=== PATIENT | male | born 1950 | race Caucasian/White ===

== ENCOUNTER 2017-08-25 19:37 | Emergency (ER) | payer OTHER, MEDICARE ==
[~2017-08-25] VITALS: Ht 165.1 cm; Wt 73.7 kg
[2017-08-25 19:45] VITALS: BP 132/72
[2017-08-25] MEDS ORDERED: predniSONE 20 mg tablet PO ONE (20:25)
[2017-08-25] MEDS ORDERED: levoFLOXACIN 250mg tablet PO ONE (20:25)
[2017-08-25] MEDS ORDERED: GUAI10SY2 PO (20:27)
[2017-08-25] MEDS ORDERED: TAM75C PO (20:27)
[2017-08-25] MEDS ORDERED: LEVO500T2 PO (20:27)
[2017-08-25] MEDS ORDERED: PRED20TA PO (20:27)
== END 2017-08-25 20:43 | disposition home or self-care (01) ==
LOC: ER 19:38
DX: J44.1 Chronic obstructive pulmonary disease with (acute) exacerbation (principal); M19.90 Unspecified osteoarthritis, unspecified site; Z79.899 Other long term (current) drug therapy
CPT/HCPCS: 71045; 99283; J7512

== ENCOUNTER 2017-09-17 07:23 | Inpatient (IN) | payer OTHER, MEDICARE ==
[~2017-09-17] VITALS: Ht 165.1 cm; Wt 92.0 kg
[~2017-09-17 07:23] MED LIST: GUAI10SY2 PO; LEVO500T2 PO; PRED20TA PO
[2017-09-17] MEDS ORDERED: albuterol 2.5 MG/3 ML nebule NEB ONE (07:30)
[2017-09-17] MEDS ORDERED: methylPREDNISolone sod succ 125mg/2ml vial IV ONE (07:30)
[2017-09-17] MEDS ORDERED: ipratropium/albuterol 3ml nebule NEB ONE (07:30)
[2017-09-17] MEDS ORDERED: rocuronium 10mg/ml inj IV ONE ×2 (08:00→10:00)
[2017-09-17 08:11] LABS: INR 1.1 INR; PARTIAL THROMBOPLASTIN TIME 29 SECONDS (22-32); PROTHROMBIN TIME 11.8 SECONDS (9.0-12.0)
[2017-09-17 08:24] LABS: ALANINE AMINOTRANSFERASE 28 U/L (12-78); ALBUMIN 3.6 G/DL (3.4-5.0); ALKALINE PHOSPHATASE 50 IU/L (46-116); ANION GAP 11 (8-16); ASPARTATE AMINO TRANSFERASE 19 U/L (10-37); BASOPHILS % (AUTO) 0.2 % (0-1); BILIRUBIN,TOTAL 0.4 MG/DL (0.1-1.0); BLOOD UREA NITROGEN 26 MG/DL (7-18); BUN/CREATININE RATIO 18.6 (5.4-32.0); CALCIUM 8.7 MG/DL (8.5-10.1); CHLORIDE 96 MMOL/L (99-107); EOSINOPHILS # (AUTO) 0.2 X10'3 (0-0.9); EOSINOPHILS % (AUTO) 2.3 % (0-6); GLUCOSE 110 MG/DL (70-104); HEMATOCRIT 38.6 % (42.0-52.0); HEMOGLOBIN 13.1 g/dl (14.0-17.9); LYMPHOCYTES # (AUTO) 0.9 X10'3 (1.1-4.8); LYMPHOCYTES % (AUTO) 11.4 % (21-51); MEAN CORPUSCULAR HEMOGLOBIN 32.8 PG (27.0-31.0); MEAN CORPUSCULAR HGB CONC 33.9 % (33.0-36.5); MEAN CORPUSCULAR VOLUME 96.6 FL (78-98); MEAN PLATELET VOLUME 7.9 FL (7.4-10.4); MONOCYTES # (AUTO) 1.1 X10'3 (0-0.9); MONOCYTES % (AUTO) 13.5 % (2-12); NEUTROPHILS # (AUTO) 5.7 X10'3 (1.8-7.7); NEUTROPHILS % (AUTO) 72.6 % (42-75); PLATELET COUNT 262 X10'3 (140-440); POTASSIUM 4.1 MMOL/L (3.5-5.1); RED CELL DISTRIBUTION WIDTH 15.3 % (11.5-14.5); SODIUM 131 MMOL/L (135-145); TOTAL CARBON DIOXIDE 24.3 MMOL/L (24-32); TOTAL PROTEIN 7.2 G/DL (6.4-8.2); WHITE BLOOD COUNT 7.9 X10'3 (4.5-11.0); eGFR 50 ML/MIN
[2017-09-17] MEDS ORDERED: SOTA150V (08:46)
[2017-09-17] MEDS ORDERED: ALBU8HFA PO (08:47)
[2017-09-17] MEDS ORDERED: TIOT18CA3 (08:48)
[2017-09-17] MEDS ORDERED: BUPR100T13 (08:49)
[2017-09-17] MEDS ORDERED: FERR325T28 PO (08:50)
[2017-09-17] MEDS ORDERED: OMEP40CA37 PO (08:53)
[2017-09-17] MEDS ORDERED: MONT10TA24 PO (08:54)
[2017-09-17] MEDS ORDERED: OSC500T PO (08:54)
[2017-09-17] MEDS ORDERED: APIX5TAB3 PO (08:55)
[2017-09-17] MEDS ORDERED: FISH12002 PO (08:55)
[2017-09-17] MEDS ORDERED: CETI10TA15 PO (08:56)
[2017-09-17] MEDS ORDERED: ATOR80TA PO (08:57)
[2017-09-17] MEDS ORDERED: CARSR60C PO (08:57)
[2017-09-17] MEDS ORDERED: LOSA25TA96 PO (08:58)
[2017-09-17] MEDS ORDERED: VIT500LI PO (08:58)
[2017-09-17] MEDS ORDERED: ALB0.5UD IH (08:59)
[2017-09-17] MEDS ORDERED: acetaminophen 325mg tablet PO PRN (09:25)
[2017-09-17] MEDS ORDERED: mag hydrox/Alum hydrox/simeth 30ml oral suspension PO PRN (09:25)
[2017-09-17] MEDS ORDERED: magnesium hydroxide 30ml (MOM) UD suspension PO PRN (09:25)
[2017-09-17] MEDS ORDERED: etomidate 2mg/ml inj. ONE (10:00)
[2017-09-17] MEDS ORDERED: SOTA120T PO (10:28)
[2017-09-17] MEDS: diltiazem CD 120mg capsule (once-daily) PO SCH (10:35)
[2017-09-17] MEDS: montelukast 10mg tablet PO SCH (10:36)
[2017-09-17] MEDS: aspirin 81mg tablet.DR PO SCH (10:36)
[2017-09-17] MEDS: buPROPion SR 150mg tablet PO SCH ×2 (10:36→20:33)
[2017-09-17] MEDS: cetirizine 10mg tablet PO SCH (10:36)
[2017-09-17] MEDS: normal saline 1000ml 1,000 ML IV SCH (10:43)
[2017-09-17] MEDS: ipratropium/albuterol 3ml nebule NEB SCH ×4 (13:17→23:56)
[2017-09-17] MEDS ORDERED: methylPREDNISolone sod succ 125mg/2ml vial IV SCH (14:00)
[2017-09-17] MEDS: losartan 50mg tablet PO SCH (14:20)
[2017-09-17 14:25] VITALS: BP 123/61
[2017-09-17] MEDS: methylPREDNISolone sod succ 125mg/2ml vial IV SCH ×2 (14:45→20:30)
[2017-09-17] MEDS: doxycycline hyclate 100mg tablet.DR PO SCH (17:19)
[2017-09-17 20:00] VITALS: BP 143/72
[2017-09-17] MEDS ORDERED: non-formulary drug (Fish Oil/Borage/Flax/Om3,6,9#1 (Omega 3-6-9 1,200 mg Softgel) 1 CAP) PO SCH (20:00)
[2017-09-17] MEDS: atorvastatin 20mg tablet PO SCH (20:33)
[2017-09-17] MEDS: sotalol 80mg tablet PO SCH (20:34)
[2017-09-17] MEDS: apixaban 5mg tablet PO SCH (20:34)
[2017-09-17] MEDS: ferrous sulfate 325mg tablet PO SCH (20:34)
[2017-09-17] MEDS: calcium carbonate 500mg tablet PO SCH (20:35)
[2017-09-17] MEDS ORDERED: temazepam 15mg capsule PO PRN (21:00)
[2017-09-18] VITALS: BP 127/80
[2017-09-18] MEDS: methylPREDNISolone sod succ 125mg/2ml vial IV SCH ×4 (02:11→19:28)
[2017-09-18] MEDS: HYDROcodone/acetaminophen 5mg/325mg tablet PO PRN ×2 (02:40→19:27)
[2017-09-18] MEDS: ipratropium/albuterol 3ml nebule NEB SCH ×6 (03:32→22:56)
[2017-09-18] MEDS: normal saline 1000ml 1,000 ML IV SCH (05:08)
[2017-09-18 05:22] LABS: BASOPHILS % (AUTO) 0 % (0-1); EOSINOPHILS % (AUTO) 0.5 % (0-6); HEMATOCRIT 33.4 % (42.0-52.0); HEMOGLOBIN 11.5 g/dl (14.0-17.9); LYMPHOCYTES # (AUTO) 0.4 X10'3 (1.1-4.8); LYMPHOCYTES % (AUTO) 4.4 % (21-51); MEAN CORPUSCULAR HEMOGLOBIN 32.7 PG (27.0-31.0); MEAN CORPUSCULAR HGB CONC 34.6 % (33.0-36.5); MEAN CORPUSCULAR VOLUME 94.6 FL (78-98); MONOCYTES # (AUTO) 1.2 X10'3 (0-0.9); MONOCYTES % (AUTO) 11.8 % (2-12); NEUTROPHILS # (AUTO) 8.5 X10'3 (1.8-7.7); NEUTROPHILS % (AUTO) 83.3 % (42-75); PLATELET COUNT 249 X10'3 (140-440); RED BLOOD COUNT 3.53 X10'6 (4.70-6.10); RED CELL DISTRIBUTION WIDTH 15.1 % (11.5-14.5); WHITE BLOOD COUNT 10.2 X10'3 (4.5-11.0)
[2017-09-18 05:50] LABS: ALBUMIN 3.1 G/DL (3.4-5.0); ANION GAP 10 (8-16); BLOOD UREA NITROGEN 32 MG/DL (7-18); BUN/CREATININE RATIO 24.6 (5.4-32.0); CALCIUM 8.7 MG/DL (8.5-10.1); CHLORIDE 95 MMOL/L (99-107); GLUCOSE 143 MG/DL (70-104); POTASSIUM 4.4 MMOL/L (3.5-5.1); SODIUM 129 MMOL/L (135-145); eGFR 55 ML/MIN
[2017-09-18 07:30] VITALS: BP 122/60
[2017-09-18] MEDS ORDERED: pantoprazole 40mg Tablet.DR PO SCH (07:30)
[2017-09-18] MEDS: doxycycline hyclate 100mg tablet.DR PO SCH ×2 (07:38→17:39)
[2017-09-18] MEDS: diltiazem CD 120mg capsule (once-daily) PO SCH (07:39)
[2017-09-18] MEDS: losartan 50mg tablet PO SCH (07:39)
[2017-09-18] MEDS: apixaban 5mg tablet PO SCH ×2 (07:39→19:27)
[2017-09-18] MEDS: aspirin 81mg tablet.DR PO SCH (07:39)
[2017-09-18] MEDS: ferrous sulfate 325mg tablet PO SCH ×2 (07:39→19:27)
[2017-09-18] MEDS: calcium carbonate 500mg tablet PO SCH ×2 (07:40→19:28)
[2017-09-18] MEDS: buPROPion SR 150mg tablet PO SCH ×2 (07:40→19:27)
[2017-09-18] MEDS: cetirizine 10mg tablet PO SCH (07:40)
[2017-09-18] MEDS: montelukast 10mg tablet PO SCH (07:40)
[2017-09-18] MEDS: ascorbic acid 500mg tablet PO SCH (07:40)
[2017-09-18] MEDS: sotalol 80mg tablet PO SCH ×2 (07:41→19:28)
[2017-09-18 11:00] VITALS: BP 103/49
[2017-09-18] MEDS: lactobacillus rhamnosus 10,000 MMU CELLS/CAPSULE PO SCH (19:28)
[2017-09-18 20:00] VITALS: BP 109/51
[2017-09-18] MEDS: atorvastatin 20mg tablet PO SCH (21:36)
[2017-09-18 23:30] VITALS: BP 128/74
[2017-09-18 23:51] LABS: ABG BASE EXCESS -1.6 mmol/L (-2.0-3.0); ABG HCO3 22.2 mmol/L (22.0-26.0); ABG OXYGEN SATURATION 87.7 % (95-98); ABG PCO2 (T) 34.5 mmHg (35.0-48.0); ABG PH (T) 7.426 (7.350-7.450); ABG PO2 (T) 52.8 mmHg (83-108); FCOHb 0.3 % (0.5-1.5); FLOW 2 L/min; FMetHb 0.1 % (0.3-1.12); FO2Hb 87.3 % (94-100); PATIENT TEMPERATURE 36.8; TOTAL HEMOGLOBIN 12.7 G/dl (14.0-18.0)
[2017-09-19] VITALS (25 sets, daily range): BP systolic 68–210; BP diastolic 45–98
[2017-09-19 00:51] LABS: ABG BASE EXCESS -2.2 mmol/L (-2.0-3.0); ABG HCO3 21.4 mmol/L (22.0-26.0); ABG OXYGEN SATURATION 97.9 % (95-98); ABG PCO2 (T) 32.9 mmHg (35.0-48.0); ABG PO2 (T) 108.4 mmHg (83-108); FCOHb 0.3 % (0.5-1.5); FMetHb 0.3 % (0.3-1.12); FO2Hb 97.3 % (94-100); PATIENT TEMPERATURE 36.8; RESPIRATORY RATE 14 b/min; RESPIRATORY RATE (OBSERVED) 41 b/min; TOTAL HEMOGLOBIN 12.5 G/dl (14.0-18.0)
[2017-09-19] MEDS ORDERED: midazolam 2 mg/2 ml injection IV ONE (01:20)
[2017-09-19] MEDS ORDERED: rocuronium 10mg/ml inj IV ONE (01:25)
[2017-09-19] MEDS ORDERED: etomidate 2mg/ml inj. IV ONE (01:25)
[2017-09-19] MEDS ORDERED: MIDAZolam 5mg/ml 2ml vial ONE (01:31)
[2017-09-19] MEDS: midazolam 100mg in NS 100ml 100 ML IV PRN ×2 (02:02→15:30)
[2017-09-19] MEDS: FENTANYL-0.9 % NACL/PF 100 ML IV PRN ×2 (02:04→13:03)
[2017-09-19 02:06] LABS: ABG BASE EXCESS -3.3 mmol/L (-2.0-3.0); ABG HCO3 23.4 mmol/L (22.0-26.0); ABG OXYGEN SATURATION 96.6 % (95-98); ABG PCO2 (T) 52.9 mmHg (35.0-48.0); ABG PH (T) 7.272 (7.350-7.450); ABG PO2 (T) 112.9 mmHg (83-108); ALLEN'S TEST Positive; FCOHb 0.1 % (0.5-1.5); FO2Hb 96.5 % (94-100); MINUTE VOLUME 8 L/min; PATIENT TEMPERATURE 38.9; PEEP 5 cm H2O; RESPIRATORY RATE 16 b/min; RESPIRATORY RATE (OBSERVED) 16 b/min; TIDAL VOLUME 500 mL; TOTAL HEMOGLOBIN 12.6 G/dl (14.0-18.0)
[2017-09-19] MEDS: vancomycin/NS 1 GM ADD-VANTAGE 250 ML IV ONE ×2 (02:20→03:58)
[2017-09-19] MEDS ORDERED: normal saline 500ml IV soln 500 ML IV ONE (02:25)
[2017-09-19] MEDS: acetaminophen 325mg tablet PO PRN ×3 (03:05→23:45)
[2017-09-19] MEDS ORDERED: vancomycin 250MG/10ML UD oral solution 10ML BOTTLE ONE (03:06)
[2017-09-19] MEDS ORDERED: PIPERACILLIN TAZO IV ONE (03:07)
[2017-09-19] MEDS ORDERED: vancomycin 750mg inj ONE (03:07)
[2017-09-19 03:08] LABS: BASOPHILS % (AUTO) 0 % (0-1); EOSINOPHILS % (AUTO) 0.2 % (0-6); HEMATOCRIT 35.1 % (42.0-52.0); LYMPHOCYTES # (AUTO) 0.3 X10'3 (1.1-4.8); LYMPHOCYTES % (AUTO) 4.7 % (21-51); MEAN CORPUSCULAR HEMOGLOBIN 32.9 PG (27.0-31.0); MEAN CORPUSCULAR HGB CONC 34.2 % (33.0-36.5); MEAN CORPUSCULAR VOLUME 96.2 FL (78-98); MEAN PLATELET VOLUME 8.1 FL (7.4-10.4); MONOCYTES # (AUTO) 0.8 X10'3 (0-0.9); MONOCYTES % (AUTO) 11.2 % (2-12); NEUTROPHILS % (AUTO) 83.9 % (42-75); PLATELET COUNT 245 X10'3 (140-440); RED BLOOD COUNT 3.65 X10'6 (4.70-6.10); RED CELL DISTRIBUTION WIDTH 14.9 % (11.5-14.5); WHITE BLOOD COUNT 7.2 X10'3 (4.5-11.0)
[2017-09-19] MEDS ORDERED: piperacillin-tazo 2.25gm/50ml 50 ML IV ONE (03:08)
[2017-09-19 03:09] LABS: CLARITY,URINE CLEAR (Clear); COLOR,URINE YELLOW (Yellow); GLUCOSE, URINE NEGATIVE (Neg); KETONES,URINE NEGATIVE (Neg); LEUKOCYTE ESTERASE ,URINE NEGATIVE (Neg); NITRITES, URINE NEGATIVE (Neg); OCCULT BLOOD,URINE SMALL (Neg); PROTEIN,URINE 100 mg/dl (Neg); UROBILINOGEN,URINE 0.2 E.U/dL (0.2-1.0)
[2017-09-19] MEDS ORDERED: vancomycin 125mg/5ml ORAL solution 5ml UD bottle ONE (03:10)
[2017-09-19 03:16] LABS: UA COLLECTION TYPE FOLEY CATH
[2017-09-19 03:18] LABS: BACTERIA,URINE FEW /HPF (Neg); RBC,URINE 0-2 /HPF (0-2); SQUAMOUS EPITHELIAL CELL,UR FEW /LPF (FEW); WBC,URINE NONE SEEN /HPF (0-4)
[2017-09-19] MEDS: piperacillin-tazo 2.25gm/50ml 50 ML IV SCH ×2 (03:21→08:17)
[2017-09-19] MEDS: ipratropium/albuterol 3ml nebule NEB SCH ×6 (03:22→22:46)
[2017-09-19] MEDS: methylPREDNISolone sod succ 125mg/2ml vial IV SCH ×4 (03:29→20:24)
[2017-09-19 03:30] LABS: ALANINE AMINOTRANSFERASE 25 U/L (12-78); ALBUMIN 3.1 G/DL (3.4-5.0); ALBUMIN/GLOBULIN RATIO 0.8 (1.1-1.5); ALKALINE PHOSPHATASE 36 IU/L (46-116); ANION GAP 10 (8-16); ASPARTATE AMINO TRANSFERASE 32 U/L (10-37); BILIRUBIN,TOTAL 0.7 MG/DL (0.1-1.0); BLOOD UREA NITROGEN 42 MG/DL (7-18); CALCIUM 8.4 MG/DL (8.5-10.1); CHLORIDE 95 MMOL/L (99-107); GLUCOSE 146 MG/DL (70-104); MAGNESIUM 1.7 MG/DL (1.5-2.4); POTASSIUM 4.1 MMOL/L (3.5-5.1); SODIUM 130 MMOL/L (135-145); TOTAL PROTEIN 6.8 G/DL (6.4-8.2); eGFR 50 ML/MIN
[2017-09-19] MEDS ORDERED: vancomycin/NS 1 GM ADD-VANTAGE 250 ML IV ONE (04:20)
[2017-09-19 06:26] LABS: ALLEN'S TEST Positive
[2017-09-19] MEDS: losartan 50mg tablet PO SCH (08:00)
[2017-09-19] MEDS: calcium carbonate 500mg tablet PO SCH ×2 (08:00→20:26)
[2017-09-19] MEDS: diltiazem CD 120mg capsule (once-daily) PO SCH (08:00)
[2017-09-19] MEDS: buPROPion SR 150mg tablet PO SCH ×2 (08:13→20:27)
[2017-09-19] MEDS: lactobacillus rhamnosus 10,000 MMU CELLS/CAPSULE PO SCH ×2 (08:13→20:27)
[2017-09-19] MEDS: apixaban 5mg tablet PO SCH ×2 (08:13→20:28)
[2017-09-19] MEDS: sotalol 80mg tablet PO SCH ×2 (08:13→20:28)
[2017-09-19] MEDS: aspirin 81mg tablet.DR PO SCH (08:13)
[2017-09-19] MEDS: ascorbic acid 500mg tablet PO SCH (08:14)
[2017-09-19] MEDS: ferrous sulfate 325mg tablet PO SCH ×2 (08:15→20:29)
[2017-09-19] MEDS: cefTRIAXone 1g/NS 100ml IVPB 100 ML IV SCH ×2 (09:25→13:37)
[2017-09-19 10:20] LABS: ABG BASE EXCESS -2.1 mmol/L (-2.0-3.0); ABG HCO3 23.8 mmol/L (22.0-26.0); ABG OXYGEN SATURATION 97.8 % (95-98); ABG PCO2 (T) 46.4 mmHg (35.0-48.0); ABG PH (T) 7.331 (7.350-7.450); ABG PO2 (T) 129.6 mmHg (83-108); FCOHb 0.2 % (0.5-1.5); FMetHb 0.2 % (0.3-1.12); FO2Hb 97.4 % (94-100); MINUTE VOLUME 10 L/min; PATIENT TEMPERATURE 37.7; PEEP 5 cm H2O; RESPIRATORY RATE (OBSERVED) 16 b/min; TIDAL VOLUME 639 mL
[2017-09-19] MEDS: azithromycin/NS 500mg/250ml 250 ML IV SCH (11:11)
[2017-09-19] MEDS ORDERED: CefTRIAXone 1 gm/50ml D5W ADV 50 ML IV SCH (12:19)
[2017-09-19] MEDS: normal saline 1000ml 1,000 ML IV SCH ×2 (12:58→23:10)
[2017-09-19] MEDS ORDERED: CefTRIAXone 1 gm/50ml D5W ADV 50 ML IV ONE (13:00)
[2017-09-19] MEDS ORDERED: amiodarone 150mg/dext, iso-os 100 ML IV ONE (14:35)
[2017-09-19] MEDS: amiodarone/D5 360MG/200ML BAG 200 ML IV SCH ×2 (14:58→20:31)
[2017-09-19] MEDS ORDERED: normal saline 1000ml 1,000 ML IVB ONE (17:10)
[2017-09-19] MEDS ORDERED: NORepinephrine 8mg/ 250ml NS 250 ML IV ONE (17:21)
[2017-09-19] MEDS ORDERED: NORepinephrine 8mg/ 250ml NS 250 ML IV SCH (17:25)
[2017-09-19] MEDS: atorvastatin 20mg tablet PO SCH (20:28)
[2017-09-19 23:50] LABS: PO2 MIXED VENOUS (TEMP COR) 44.2 mmHg (35-46)
[2017-09-20] VITALS (24 sets, daily range): BP systolic 84–121; BP diastolic 46–76
[2017-09-20] MEDS: methylPREDNISolone sod succ 125mg/2ml vial IV SCH ×4 (02:50→20:58)
[2017-09-20 03:17] LABS: BASOPHILS % (AUTO) 0.1 % (0-1); EOSINOPHILS % (AUTO) 0.2 % (0-6); HEMATOCRIT 30.1 % (42.0-52.0); HEMOGLOBIN 10.4 g/dl (14.0-17.9); LYMPHOCYTES # (AUTO) 0.5 X10'3 (1.1-4.8); LYMPHOCYTES % (AUTO) 6.5 % (21-51); MEAN CORPUSCULAR HGB CONC 34.7 % (33.0-36.5); MEAN CORPUSCULAR VOLUME 95.3 FL (78-98); MEAN PLATELET VOLUME 8.5 FL (7.4-10.4); MONOCYTES # (AUTO) 0.7 X10'3 (0-0.9); MONOCYTES % (AUTO) 9.9 % (2-12); NEUTROPHILS % (AUTO) 83.3 % (42-75); PLATELET COUNT 189 X10'3 (140-440); RED BLOOD COUNT 3.16 X10'6 (4.70-6.10); RED CELL DISTRIBUTION WIDTH 14.1 % (11.5-14.5); WHITE BLOOD COUNT 7.2 X10'3 (4.5-11.0)
[2017-09-20] MEDS: FENTANYL-0.9 % NACL/PF 100 ML IV PRN ×2 (03:28→21:00)
[2017-09-20] MEDS: ipratropium/albuterol 3ml nebule NEB SCH ×6 (03:28→23:10)
[2017-09-20 03:39] LABS: ALANINE AMINOTRANSFERASE 17 U/L (12-78); ALBUMIN 2.2 G/DL (3.4-5.0); ALBUMIN/GLOBULIN RATIO 0.6 (1.1-1.5); ALKALINE PHOSPHATASE 21 IU/L (46-116); ANION GAP 11 (8-16); ASPARTATE AMINO TRANSFERASE 31 U/L (10-37); BILIRUBIN,TOTAL 0.4 MG/DL (0.1-1.0); BLOOD UREA NITROGEN 65 MG/DL (7-18); BUN/CREATININE RATIO 32.2 (5.4-32.0); CALCIUM 7.9 MG/DL (8.5-10.1); CHLORIDE 100 MMOL/L (99-107); CREATININE 2.02 MG/DL (0.60-1.10); GLUCOSE 114 MG/DL (70-104); POTASSIUM 4.4 MMOL/L (3.5-5.1); SODIUM 135 MMOL/L (135-145); TOTAL CARBON DIOXIDE 23.6 MMOL/L (24-32); TOTAL PROTEIN 5.8 G/DL (6.4-8.2); eGFR 33 ML/MIN
[2017-09-20 03:45] LABS: ABG HCO3 20.2 mmol/L (22.0-26.0); ABG OXYGEN SATURATION 93.6 % (95-98); ABG PCO2 (T) 43.8 mmHg (35.0-48.0); ABG PH (T) 7.285 (7.350-7.450); ALLEN'S TEST Positive; FCOHb 0.1 % (0.5-1.5); FMetHb 0.3 % (0.3-1.12); FO2Hb 93.2 % (94-100); MINUTE VOLUME 10 L/min; PATIENT TEMPERATURE 37.8; PEEP 5 cm H2O; RESPIRATORY RATE (OBSERVED) 12 b/min; TIDAL VOLUME 835 mL; TOTAL HEMOGLOBIN 11.1 G/dl (14.0-18.0)
[2017-09-20] MEDS: azithromycin/NS 500mg/250ml 250 ML IV SCH (07:33)
[2017-09-20] MEDS: sotalol 80mg tablet PO SCH ×2 (07:34→21:10)
[2017-09-20] MEDS: ferrous sulfate 325mg tablet PO SCH ×2 (07:35→20:58)
[2017-09-20] MEDS: ascorbic acid 500mg tablet PO SCH (07:35)
[2017-09-20] MEDS: calcium carbonate 500mg tablet PO SCH ×2 (07:35→21:09)
[2017-09-20] MEDS: apixaban 5mg tablet PO SCH ×2 (07:35→21:09)
[2017-09-20] MEDS: aspirin 81mg tablet.DR PO SCH (07:35)
[2017-09-20] MEDS: buPROPion SR 150mg tablet PO SCH ×2 (07:35→21:08)
[2017-09-20] MEDS: lactobacillus rhamnosus 10,000 MMU CELLS/CAPSULE PO SCH ×2 (07:35→20:58)
[2017-09-20] MEDS: losartan 50mg tablet PO SCH (07:35)
[2017-09-20] MEDS: diltiazem CD 120mg capsule (once-daily) PO SCH (07:54)
[2017-09-20] MEDS: amiodarone/D5 360MG/200ML BAG 200 ML IV SCH ×2 (08:43→21:00)
[2017-09-20 10:10] LABS: CLARITY,URINE CLOUDY (Clear); COLOR,URINE YELLOW (Yellow); GLUCOSE, URINE NEGATIVE (Neg); KETONES,URINE NEGATIVE (Neg); LEUKOCYTE ESTERASE ,URINE NEGATIVE (Neg); NITRITES, URINE NEGATIVE (Neg); OCCULT BLOOD,URINE LARGE (Neg); PH,URINE 5.5 (4.8-8.0); PROTEIN,URINE 100 mg/dl (Neg); UROBILINOGEN,URINE 0.2 E.U/dL (0.2-1.0)
[2017-09-20 10:23] LABS: UA COLLECTION TYPE NON-SPECIFIED
[2017-09-20 10:24] LABS: COARSE GRANULAR CAST >30 /LPF (NEGATIVE)
[2017-09-20 10:25] LABS: RBC,URINE TNTC /HPF (0-2)
[2017-09-20 10:30] LABS: BACTERIA,URINE 1+ /HPF (Neg); MUCUS STRANDS FEW /LPF (Neg); SQUAMOUS EPITHELIAL CELL,UR FEW /LPF (FEW)
[2017-09-20 10:46] LABS: SODIUM,URINE RANDOM < 15 MEQ/L
[2017-09-20] MEDS ORDERED: piperacillin/tazobactam inj. 2.25 GM in normal saline 50ml IV IV SCH (10:52)
[2017-09-20] MEDS: normal saline 1000ml 1,000 ML IV SCH ×3 (11:07→22:46)
[2017-09-20] MEDS: piperacillin-tazo 2.25gm/50ml 50 ML IV SCH ×3 (11:08→20:58)
[2017-09-20 11:47] LABS: UA EOSINOPHILS NO EOS /HPF
[2017-09-20] MEDS: midazolam 100mg in NS 100ml 100 ML IV PRN (17:15)
[2017-09-20] MEDS: NORepinephrine 8mg/ 250ml NS 250 ML IV PRN (17:18)
[2017-09-20] MEDS: atorvastatin 20mg tablet PO SCH (21:09)
[2017-09-21] VITALS (24 sets, daily range): BP systolic 85–149; BP diastolic 54–69
[2017-09-21] MEDS: piperacillin-tazo 2.25gm/50ml 50 ML IV SCH ×2 (02:35→08:14)
[2017-09-21] MEDS: methylPREDNISolone sod succ 125mg/2ml vial IV SCH ×4 (02:35→20:13)
[2017-09-21] MEDS: ipratropium/albuterol 3ml nebule NEB SCH ×6 (02:55→23:28)
[2017-09-21] MEDS: midazolam 100mg in NS 100ml 100 ML IV PRN ×2 (04:19→23:56)
[2017-09-21 04:24] LABS: BASOPHILS % (AUTO) 0 % (0-1); EOSINOPHILS % (AUTO) 0.3 % (0-6); HEMATOCRIT 32.7 % (42.0-52.0); HEMOGLOBIN 11.1 g/dl (14.0-17.9); LYMPHOCYTES # (AUTO) 0.5 X10'3 (1.1-4.8); LYMPHOCYTES % (AUTO) 4.1 % (21-51); MEAN CORPUSCULAR HGB CONC 33.8 % (33.0-36.5); MEAN CORPUSCULAR VOLUME 97.7 FL (78-98); MEAN PLATELET VOLUME 9.2 FL (7.4-10.4); MONOCYTES # (AUTO) 0.5 X10'3 (0-0.9); MONOCYTES % (AUTO) 4.3 % (2-12); NEUTROPHILS # (AUTO) 11.3 X10'3 (1.8-7.7); NEUTROPHILS % (AUTO) 91.3 % (42-75); PLATELET COUNT 210 X10'3 (140-440); RED BLOOD COUNT 3.35 X10'6 (4.70-6.10); RED CELL DISTRIBUTION WIDTH 15.5 % (11.5-14.5); WHITE BLOOD COUNT 12.4 X10'3 (4.5-11.0)
[2017-09-21] MEDS: normal saline 1000ml 1,000 ML IV SCH ×3 (04:38→20:12)
[2017-09-21 04:42] LABS: ALANINE AMINOTRANSFERASE 23 U/L (12-78); ALBUMIN 1.8 G/DL (3.4-5.0); ALBUMIN/GLOBULIN RATIO 0.5 (1.1-1.5); ALKALINE PHOSPHATASE 26 IU/L (46-116); ANION GAP 11 (8-16); ASPARTATE AMINO TRANSFERASE 33 U/L (10-37); BILIRUBIN,TOTAL 0.4 MG/DL (0.1-1.0); BLOOD UREA NITROGEN 78 MG/DL (7-18); BUN/CREATININE RATIO 30.2 (5.4-32.0); CALCIUM 7.9 MG/DL (8.5-10.1); CHLORIDE 103 MMOL/L (99-107); CREATININE 2.58 MG/DL (0.60-1.10); GLUCOSE 128 MG/DL (70-104); POTASSIUM 4.6 MMOL/L (3.5-5.1); PREALBUMIN 9.5 MG/DL (19-36); SODIUM 137 MMOL/L (135-145); TOTAL PROTEIN 5.7 G/DL (6.4-8.2); eGFR 25 ML/MIN
[2017-09-21 05:11] LABS: ABG BASE EXCESS -7.4 mmol/L (-2.0-3.0); ABG HCO3 20.3 mmol/L (22.0-26.0); ABG OXYGEN SATURATION 94.1 % (95-98); ABG PCO2 (T) 51.7 mmHg (35.0-48.0); ABG PH (T) 7.214 (7.350-7.450); ABG PO2 (T) 80.5 mmHg (83-108); ALLEN'S TEST Positive; FCOHb 0.3 % (0.5-1.5); FMetHb 0.3 % (0.3-1.12); FO2Hb 93.5 % (94-100); PATIENT TEMPERATURE 37.5; PEEP 5 cm H2O; RESPIRATORY RATE 20 b/min; RESPIRATORY RATE (OBSERVED) 20 b/min; TOTAL HEMOGLOBIN 11.8 G/dl (14.0-18.0)
[2017-09-21] MEDS: losartan 50mg tablet PO SCH (08:00)
[2017-09-21] MEDS: lactobacillus rhamnosus 10,000 MMU CELLS/CAPSULE PO SCH ×2 (08:14→20:13)
[2017-09-21] MEDS: aspirin 81mg tablet.DR PO SCH (08:14)
[2017-09-21] MEDS: ascorbic acid 500mg tablet PO SCH (08:14)
[2017-09-21] MEDS: ferrous sulfate 325mg tablet PO SCH ×2 (08:14→20:13)
[2017-09-21] MEDS: sotalol 80mg tablet PO SCH ×2 (08:14→20:13)
[2017-09-21] MEDS: buPROPion SR 150mg tablet PO SCH ×2 (08:14→20:00)
[2017-09-21] MEDS: apixaban 5mg tablet PO SCH ×2 (08:14→20:13)
[2017-09-21] MEDS: calcium carbonate 500mg tablet PO SCH ×2 (08:14→20:13)
[2017-09-21] MEDS: NORepinephrine 8mg/ 250ml NS 250 ML IV PRN (09:53)
[2017-09-21] MEDS: amiodarone/D5 360MG/200ML BAG 200 ML IV SCH ×2 (09:54→20:39)
[2017-09-21 11:01] LABS: ABG BASE EXCESS -9.7 mmol/L (-2.0-3.0); ABG HCO3 17.9 mmol/L (22.0-26.0); ABG PCO2 (T) 47.3 mmHg (35.0-48.0); ABG PO2 (T) 107.7 mmHg (83-108); FCOHb 0.3 % (0.5-1.5); FLOW 40 L/min; FMetHb 0.3 % (0.3-1.12); FO2Hb 96.4 % (94-100); MINUTE VOLUME 9 L/min; PATIENT TEMPERATURE 37.7; PEEP 5 cm H2O; RESPIRATORY RATE 22 b/min; RESPIRATORY RATE (OBSERVED) 22 b/min; TOTAL HEMOGLOBIN 11.6 G/dl (14.0-18.0)
[2017-09-21] MEDS: famotidine/PF 10 mg/ml inj IV SCH ×2 (12:34→20:12)
[2017-09-21] MEDS: bisacodyl 10mg suppository rectal RC PRN (15:17)
[2017-09-21 16:56] LABS: ABG BASE EXCESS -10.1 mmol/L (-2.0-3.0); ABG HCO3 16.2 mmol/L (22.0-26.0); ABG OXYGEN SATURATION 95.7 % (95-98); ABG PCO2 (T) 38.1 mmHg (35.0-48.0); ABG PH (T) 7.249 (7.350-7.450); ABG PO2 (T) 89.8 mmHg (83-108); ALLEN'S TEST Positive; FCOHb 0.3 % (0.5-1.5); FO2Hb 95.4 % (94-100); MINUTE VOLUME 13 L/min; PATIENT TEMPERATURE 37.6; PEEP 5 cm H2O; RESPIRATORY RATE 24 b/min; RESPIRATORY RATE (OBSERVED) 24 b/min; TIDAL VOLUME 540 mL; TOTAL HEMOGLOBIN 11.7 G/dl (14.0-18.0)
[2017-09-21] MEDS: atorvastatin 20mg tablet PO SCH (20:14)
[2017-09-21] MEDS ORDERED: dextrose ORAL solution 15 GM/59 ML bottle PO PRN ×2 (20:50)
[2017-09-21] MEDS ORDERED: MESSAGE TO PHARMACY PO ONE (20:50)
[2017-09-21] MEDS ORDERED: glucagon, human recombinant 1mg kit SUBCUT PRN (20:50)
[2017-09-21] MEDS ORDERED: dextrose 50%-water 50ml dispensing syringe IV PRN ×2 (20:50)
[2017-09-21] MEDS: insulin glargine (Lantus) pen - multi-dose SQ SCH (21:00)
[2017-09-21] MEDS: FENTANYL-0.9 % NACL/PF 100 ML IV PRN (21:21)
[2017-09-22] VITALS (23 sets, daily range): BP systolic 85–144; BP diastolic 52–73
[2017-09-22] MEDS: normal saline 1000ml 1,000 ML IV SCH ×4 (02:19→21:26)
[2017-09-22] MEDS: methylPREDNISolone sod succ 125mg/2ml vial IV SCH ×4 (02:20→20:22)
[2017-09-22 02:36] LABS: BASOPHILS % (AUTO) 0 % (0-1); EOSINOPHILS % (AUTO) 0 % (0-6); HEMATOCRIT 31.9 % (42.0-52.0); HEMOGLOBIN 10.9 g/dl (14.0-17.9); LYMPHOCYTES # (AUTO) 0.8 X10'3 (1.1-4.8); LYMPHOCYTES % (AUTO) 4.5 % (21-51); MEAN CORPUSCULAR HEMOGLOBIN 32.9 PG (27.0-31.0); MEAN CORPUSCULAR HGB CONC 34.1 % (33.0-36.5); MEAN CORPUSCULAR VOLUME 96.4 FL (78-98); MEAN PLATELET VOLUME 8.9 FL (7.4-10.4); MONOCYTES # (AUTO) 0.8 X10'3 (0-0.9); MONOCYTES % (AUTO) 4.5 % (2-12); NEUTROPHILS # (AUTO) 16.1 X10'3 (1.8-7.7); PLATELET COUNT 210 X10'3 (140-440); RED BLOOD COUNT 3.31 X10'6 (4.70-6.10); RED CELL DISTRIBUTION WIDTH 16.2 % (11.5-14.5); WHITE BLOOD COUNT 17.7 X10'3 (4.5-11.0)
[2017-09-22 02:53] LABS: ALANINE AMINOTRANSFERASE 32 U/L (12-78); ALBUMIN 1.5 G/DL (3.4-5.0); ALBUMIN/GLOBULIN RATIO 0.4 (1.1-1.5); ALKALINE PHOSPHATASE 41 IU/L (46-116); ANION GAP 11 (8-16); ASPARTATE AMINO TRANSFERASE 37 U/L (10-37); BILIRUBIN,TOTAL 0.2 MG/DL (0.1-1.0); BLOOD UREA NITROGEN 106 MG/DL (7-18); BUN/CREATININE RATIO 32.2 (5.4-32.0); CALCIUM 8.1 MG/DL (8.5-10.1); CHLORIDE 103 MMOL/L (99-107); CREATININE 3.29 MG/DL (0.60-1.10); GLUCOSE 170 MG/DL (70-104); MAGNESIUM 2.5 MG/DL (1.5-2.4); PHOSPHORUS 3.6 MG/DL (2.3-4.5); POTASSIUM 4.2 MMOL/L (3.5-5.1); SODIUM 135 MMOL/L (135-145); TOTAL CARBON DIOXIDE 21.2 MMOL/L (24-32); TOTAL PROTEIN 5.4 G/DL (6.4-8.2); eGFR 19 ML/MIN
[2017-09-22] MEDS: ipratropium/albuterol 3ml nebule NEB SCH ×6 (03:22→23:27)
[2017-09-22 03:31] LABS: ANISOCYTOSIS 1+; BURR CELLS 1+; NUCLEATED RED BLOOD CELLS 1 /100WBC (0-0); PLATELET ESTIMATE NORMAL; TOTAL CELLS COUNTED 100
[2017-09-22 04:41] LABS: ABG BASE EXCESS -10.3 mmol/L (-2.0-3.0); ABG HCO3 16.6 mmol/L (22.0-26.0); ABG OXYGEN SATURATION 94.2 % (95-98); ABG PCO2 (T) 38.2 mmHg (35.0-48.0); ABG PO2 (T) 74.6 mmHg (83-108); ALLEN'S TEST Positive; FCOHb 0.3 % (0.5-1.5); FMetHb 0.3 % (0.3-1.12); FO2Hb 93.6 % (94-100); MINUTE VOLUME 14 L/min; PEEP 5 cm H2O; RESPIRATORY RATE 24 b/min; RESPIRATORY RATE (OBSERVED) 27 b/min; TOTAL HEMOGLOBIN 12.5 G/dl (14.0-18.0)
[2017-09-22] MEDS: NORepinephrine 8mg/ 250ml NS 250 ML IV PRN ×2 (05:40→21:40)
[2017-09-22] MEDS: levoFLOXACIN-Levaquin 250mg/D5 50 ML IV SCH (08:50)
[2017-09-22] MEDS: sotalol 80mg tablet PO SCH ×2 (08:51→20:27)
[2017-09-22] MEDS: famotidine/PF 10 mg/ml inj IV SCH ×2 (08:51→20:22)
[2017-09-22] MEDS: calcium carbonate 500mg tablet PO SCH ×2 (08:52→20:28)
[2017-09-22] MEDS: lactobacillus rhamnosus 10,000 MMU CELLS/CAPSULE PO SCH ×2 (08:52→20:27)
[2017-09-22] MEDS: ascorbic acid 500mg tablet PO SCH (08:52)
[2017-09-22] MEDS: apixaban 5mg tablet PO SCH ×2 (08:52→20:27)
[2017-09-22] MEDS: insulin regular, human vial - multi-dose SQ SCH ×3 (09:02→20:58)
[2017-09-22] MEDS: losartan 50mg tablet PO SCH (09:02)
[2017-09-22] MEDS: amiodarone/D5 360MG/200ML BAG 200 ML IV SCH ×2 (10:16→20:24)
[2017-09-22] MEDS: FENTANYL-0.9 % NACL/PF 100 ML IV PRN (18:30)
[2017-09-22] MEDS ORDERED: albumin (human) 25% 100 ML IV solution IV ONE (19:45)
[2017-09-22] MEDS ORDERED: furosemide 40mg/4ml inj IV ONE (19:45)
[2017-09-22] MEDS: ferrous sulfate 300mg/5ml UD oral liquid PO SCH (20:28)
[2017-09-22] MEDS: atorvastatin 20mg tablet PO SCH (20:28)
[2017-09-22] MEDS: buPROPion 75mg tablet PO SCH (20:28)
[2017-09-22] MEDS: insulin glargine (Lantus) pen - multi-dose SQ SCH (20:56)
[2017-09-22] MEDS: midazolam 100mg in NS 100ml 100 ML IV PRN (21:41)
[2017-09-23] VITALS (23 sets, daily range): BP systolic 66–119; BP diastolic 46–74
[2017-09-23] MEDS: normal saline 1000ml 1,000 ML IV SCH ×3 (00:11→15:26)
[2017-09-23] MEDS: methylPREDNISolone sod succ 125mg/2ml vial IV SCH ×4 (02:17→21:08)
[2017-09-23] MEDS: insulin regular, human vial - multi-dose SQ SCH ×3 (02:27→14:23)
[2017-09-23] MEDS: ipratropium/albuterol 3ml nebule NEB SCH ×6 (03:27→23:33)
[2017-09-23 03:41] LABS: ABG BASE EXCESS -12.1 mmol/L (-2.0-3.0); ABG HCO3 14.7 mmol/L (22.0-26.0); ABG OXYGEN SATURATION 94.2 % (95-98); ABG PCO2 (T) 35.2 mmHg (35.0-48.0); ABG PH (T) 7.233 (7.350-7.450); ABG PO2 (T) 73.8 mmHg (83-108); ALLEN'S TEST Positive; FCOHb 0.3 % (0.5-1.5); FMetHb 0.3 % (0.3-1.12); FO2Hb 93.6 % (94-100); MINUTE VOLUME 12 L/min; PATIENT TEMPERATURE 36.2; PEEP 5 cm H2O; RESPIRATORY RATE 24 b/min; RESPIRATORY RATE (OBSERVED) 24 b/min; TOTAL HEMOGLOBIN 10.7 G/dl (14.0-18.0)
[2017-09-23 04:46] LABS: BASOPHILS % (AUTO) 0 % (0-1); EOSINOPHILS # (AUTO) 0.3 X10'3 (0-0.9); EOSINOPHILS % (AUTO) 1.2 % (0-6); HEMATOCRIT 28.9 % (42.0-52.0); HEMOGLOBIN 9.8 g/dl (14.0-17.9); LYMPHOCYTES # (AUTO) 0.4 X10'3 (1.1-4.8); MEAN CORPUSCULAR HEMOGLOBIN 32.2 PG (27.0-31.0); MEAN CORPUSCULAR HGB CONC 33.7 % (33.0-36.5); MEAN CORPUSCULAR VOLUME 95.6 FL (78-98); MEAN PLATELET VOLUME 9.4 FL (7.4-10.4); MONOCYTES # (AUTO) 0.5 X10'3 (0-0.9); MONOCYTES % (AUTO) 2.3 % (2-12); NEUTROPHILS # (AUTO) 20.4 X10'3 (1.8-7.7); NEUTROPHILS % (AUTO) 94.5 % (42-75); PLATELET COUNT 188 X10'3 (140-440); RED BLOOD COUNT 3.03 X10'6 (4.70-6.10); RED CELL DISTRIBUTION WIDTH 17.2 % (11.5-14.5); WHITE BLOOD COUNT 21.6 X10'3 (4.5-11.0)
[2017-09-23 05:23] LABS: ALANINE AMINOTRANSFERASE 40 U/L (12-78); ALBUMIN 2.1 G/DL (3.4-5.0); ALBUMIN/GLOBULIN RATIO 0.6 (1.1-1.5); ALKALINE PHOSPHATASE 46 IU/L (46-116); ANION GAP 16 (8-16); ASPARTATE AMINO TRANSFERASE 34 U/L (10-37); BILIRUBIN,TOTAL 0.3 MG/DL (0.1-1.0); BLOOD UREA NITROGEN 125 MG/DL (7-18); BUN/CREATININE RATIO 32.1 (5.4-32.0); CALCIUM 8.1 MG/DL (8.5-10.1); CHLORIDE 105 MMOL/L (99-107); GLUCOSE 181 MG/DL (70-104); MAGNESIUM 2.6 MG/DL (1.5-2.4); POTASSIUM 4.2 MMOL/L (3.5-5.1); SODIUM 137 MMOL/L (135-145); TOTAL CARBON DIOXIDE 16.5 MMOL/L (24-32); TOTAL PROTEIN 5.4 G/DL (6.4-8.2); eGFR 15 ML/MIN
[2017-09-23 07:04] LABS: ANISOCYTOSIS 1+; BURR CELLS 1+; NUCLEATED RED BLOOD CELLS 2 /100WBC (0-0); PLATELET ESTIMATE NORMAL; POIKILOCYTOSIS FEW; TARGET CELLS FEW; TEAR DROP CELLS FEW; TOTAL CELLS COUNTED 100
[2017-09-23] MEDS: losartan 50mg tablet PO SCH ×2 (08:00→08:24)
[2017-09-23] MEDS: sotalol 80mg tablet PO SCH ×3 (08:00→20:00)
[2017-09-23] MEDS: amiodarone/D5 360MG/200ML BAG 200 ML IV SCH (08:14)
[2017-09-23] MEDS: lactobacillus rhamnosus 10,000 MMU CELLS/CAPSULE PO SCH ×2 (08:24→21:08)
[2017-09-23] MEDS: apixaban 5mg tablet PO SCH ×2 (08:25→21:21)
[2017-09-23] MEDS: buPROPion 75mg tablet PO SCH ×2 (08:25→21:18)
[2017-09-23] MEDS: ascorbic acid 500mg tablet PO SCH (08:25)
[2017-09-23] MEDS: calcium carbonate 500mg tablet PO SCH ×2 (08:25→21:17)
[2017-09-23] MEDS: aspirin 81mg tab.chew PO SCH (08:25)
[2017-09-23] MEDS: ferrous sulfate 300mg/5ml UD oral liquid PO SCH ×2 (08:37→21:18)
[2017-09-23] MEDS: famotidine/PF 10 mg/ml inj IV SCH ×2 (08:37→21:08)
[2017-09-23] MEDS: levoFLOXACIN-Levaquin 250mg/D5 50 ML IV SCH (08:42)
[2017-09-23] MEDS: FENTANYL-0.9 % NACL/PF 100 ML IV PRN (15:27)
[2017-09-23] MEDS ORDERED: LIDOcaine 1% (10mg/ml) 2ml vial ONE (17:02)
[2017-09-23] MEDS: NORepinephrine 8mg/ 250ml NS 250 ML IV PRN (17:30)
[2017-09-23] MEDS: mineral oil/petrolatum ophthal oint EACHEYE SCH (21:08)
[2017-09-23] MEDS: atorvastatin 20mg tablet PO SCH (21:09)
[2017-09-23] MEDS: insulin glargine (Lantus) pen - multi-dose SQ SCH (21:17)
[2017-09-24] VITALS (23 sets, daily range): BP systolic 98–119; BP diastolic 47–59
[2017-09-24] MEDS: mineral oil/petrolatum ophthal oint EACHEYE SCH ×4 (02:37→20:08)
[2017-09-24] MEDS: methylPREDNISolone sod succ 125mg/2ml vial IV SCH ×4 (02:38→20:08)
[2017-09-24] MEDS: insulin regular, human vial - multi-dose SQ SCH ×4 (02:40→20:23)
[2017-09-24] MEDS: ipratropium/albuterol 3ml nebule NEB SCH ×6 (02:53→23:36)
[2017-09-24 03:11] LABS: ABG BASE EXCESS -14.1 mmol/L (-2.0-3.0); ABG HCO3 12.8 mmol/L (22.0-26.0); ABG OXYGEN SATURATION 95.7 % (95-98); ABG PCO2 (T) 33.3 mmHg (35.0-48.0); ABG PH (T) 7.203 (7.350-7.450); ABG PO2 (T) 84.9 mmHg (83-108); FCOHb 0.3 % (0.5-1.5); FO2Hb 95.4 % (94-100); MINUTE VOLUME 13 L/min; PATIENT TEMPERATURE 36.7; PEEP 5 cm H2O; RESPIRATORY RATE 24 b/min; RESPIRATORY RATE (OBSERVED) 24 b/min
[2017-09-24 04:58] LABS: BASOPHILS % (AUTO) 0 % (0-1); EOSINOPHILS # (AUTO) 0.3 X10'3 (0-0.9); EOSINOPHILS % (AUTO) 1.4 % (0-6); HEMOGLOBIN 10.1 g/dl (14.0-17.9); LYMPHOCYTES # (AUTO) 0.3 X10'3 (1.1-4.8); LYMPHOCYTES % (AUTO) 1.3 % (21-51); MEAN CORPUSCULAR HEMOGLOBIN 32.5 PG (27.0-31.0); MEAN CORPUSCULAR HGB CONC 33.6 % (33.0-36.5); MEAN CORPUSCULAR VOLUME 96.6 FL (78-98); MEAN PLATELET VOLUME 9.3 FL (7.4-10.4); MONOCYTES # (AUTO) 0.5 X10'3 (0-0.9); MONOCYTES % (AUTO) 2.2 % (2-12); NEUTROPHILS # (AUTO) 21.4 X10'3 (1.8-7.7); NEUTROPHILS % (AUTO) 95.1 % (42-75); PLATELET COUNT 206 X10'3 (140-440); RED BLOOD COUNT 3.11 X10'6 (4.70-6.10); WHITE BLOOD COUNT 22.5 X10'3 (4.5-11.0)
[2017-09-24 05:25] LABS: ALANINE AMINOTRANSFERASE 37 U/L (12-78); ALBUMIN 1.7 G/DL (3.4-5.0); ALBUMIN/GLOBULIN RATIO 0.5 (1.1-1.5); ALKALINE PHOSPHATASE 49 IU/L (46-116); ANION GAP 15 (8-16); ASPARTATE AMINO TRANSFERASE 29 U/L (10-37); BILIRUBIN,TOTAL 0.3 MG/DL (0.1-1.0); BLOOD UREA NITROGEN 142 MG/DL (7-18); BUN/CREATININE RATIO 30.9 (5.4-32.0); CALCIUM 8.2 MG/DL (8.5-10.1); CHLORIDE 105 MMOL/L (99-107); GLUCOSE 147 MG/DL (70-104); MAGNESIUM 2.7 MG/DL (1.5-2.4); PHOSPHORUS 4.8 MG/DL (2.3-4.5); POTASSIUM 4.8 MMOL/L (3.5-5.1); SODIUM 137 MMOL/L (135-145); TOTAL CARBON DIOXIDE 16.6 MMOL/L (24-32); TOTAL PROTEIN 5.1 G/DL (6.4-8.2); eGFR 13 ML/MIN
[2017-09-24 05:43] LABS: ALLEN'S TEST Positive
[2017-09-24 05:45] LABS: ALLEN'S TEST Positive
[2017-09-24 06:04] LABS: ACANTHOCYTES FEW; ANISOCYTOSIS 1+; PLATELET ESTIMATE NORMAL; TARGET CELLS FEW; TOTAL CELLS COUNTED 100
[2017-09-24] MEDS: losartan 50mg tablet PO SCH (08:00)
[2017-09-24] MEDS: sotalol 80mg tablet PO SCH ×2 (08:00→19:37)
[2017-09-24] MEDS: apixaban 5mg tablet PO SCH ×2 (08:16→20:08)
[2017-09-24] MEDS: aspirin 81mg tab.chew PO SCH (08:16)
[2017-09-24] MEDS: ferrous sulfate 300mg/5ml UD oral liquid PO SCH ×2 (08:16→20:08)
[2017-09-24] MEDS: ascorbic acid 500mg tablet PO SCH (08:16)
[2017-09-24] MEDS: calcium carbonate 500mg tablet PO SCH ×2 (08:16→19:37)
[2017-09-24] MEDS: buPROPion 75mg tablet PO SCH ×2 (08:16→20:08)
[2017-09-24] MEDS: lactobacillus rhamnosus 10,000 MMU CELLS/CAPSULE PO SCH ×2 (08:16→20:08)
[2017-09-24] MEDS: famotidine/PF 10 mg/ml inj IV SCH ×2 (08:17→20:08)
[2017-09-24] MEDS: levoFLOXACIN-Levaquin 250mg/D5 50 ML IV SCH (08:17)
[2017-09-24] MEDS ORDERED: potassium Cl 20mEq/100mL bag 100 ML IV PRN (17:30)
[2017-09-24] MEDS ORDERED: sodium phosphate inj. 30 MMOL in normal saline 250ml IV soln 250 ML IV PRN (17:30)
[2017-09-24] MEDS ORDERED: calcium chloride inj. 1,000 MG in normal saline 100ml IV soln 100 ML IV PRN (17:30)
[2017-09-24] MEDS ORDERED: magnesium 4gm in 100ml NS 100 ML IV PRN (17:30)
[2017-09-24] MEDS ORDERED: calcium chloride inj. 10,000 MG in normal saline 500ml IV soln 400 ML IV PRN (17:50)
[2017-09-24] MEDS: atorvastatin 20mg tablet PO SCH (20:08)
[2017-09-24] MEDS: insulin glargine (Lantus) pen - multi-dose SQ SCH (20:24)
[2017-09-24] MEDS: Duosol 4k/NO Calcium 5,000 ML HE SCH ×4 (20:29→22:47)
[2017-09-24] MEDS: citrate dextrose 1000ml IV sol 1,000 ML IV PRN (20:30)
[2017-09-24] MEDS: calcium chloride inj. 10,000 MG in normal saline 500ml IV soln 400 ML IV PRN (20:56)
[2017-09-24] MEDS: FENTANYL-0.9 % NACL/PF 100 ML IV PRN (23:17)
[2017-09-24] MEDS: midazolam 100mg in NS 100ml 100 ML IV PRN (23:30)
[2017-09-25] VITALS (24 sets, daily range): BP systolic 86–167; BP diastolic 47–77
[2017-09-25] MEDS: Duosol 4k/NO Calcium 5,000 ML HE SCH ×16 (00:39→20:53)
[2017-09-25 00:43] LABS: BASOPHILS % (AUTO) 0.1 % (0-1); EOSINOPHILS % (AUTO) 0 % (0-6); HEMATOCRIT 29.6 % (42.0-52.0); HEMOGLOBIN 10.2 g/dl (14.0-17.9); LYMPHOCYTES # (AUTO) 0.5 X10'3 (1.1-4.8); MEAN CORPUSCULAR HEMOGLOBIN 32.7 PG (27.0-31.0); MEAN CORPUSCULAR HGB CONC 34.3 % (33.0-36.5); MEAN CORPUSCULAR VOLUME 95.2 FL (78-98); MEAN PLATELET VOLUME 9.3 FL (7.4-10.4); MONOCYTES # (AUTO) 0.7 X10'3 (0-0.9); MONOCYTES % (AUTO) 2.4 % (2-12); NEUTROPHILS % (AUTO) 95.5 % (42-75); PLATELET COUNT 207 X10'3 (140-440); RED BLOOD COUNT 3.11 X10'6 (4.70-6.10); RED CELL DISTRIBUTION WIDTH 15.9 % (11.5-14.5)
[2017-09-25 00:45] LABS: WHITE BLOOD COUNT 27.2 X10'3 (4.5-11.0)
[2017-09-25 00:53] LABS: ALBUMIN 1.6 G/DL (3.4-5.0); ANION GAP 16 (8-16); BLOOD UREA NITROGEN 145 MG/DL (7-18); BUN/CREATININE RATIO 33.4 (5.4-32.0); CHLORIDE 106 MMOL/L (99-107); CREATININE 4.34 MG/DL (0.60-1.10); GLUCOSE 177 MG/DL (70-104); MAGNESIUM 2.5 MG/DL (1.5-2.4); PHOSPHORUS 4.8 MG/DL (2.3-4.5); POTASSIUM 4.9 MMOL/L (3.5-5.1); SODIUM 138 MMOL/L (135-145); TOTAL CARBON DIOXIDE 16.1 MMOL/L (24-32); eGFR 14 ML/MIN
[2017-09-25] MEDS: citrate dextrose 1000ml IV sol 1,000 ML IV PRN ×6 (01:11→20:15)
[2017-09-25 01:12] LABS: NUCLEATED RED BLOOD CELLS 1 /100WBC (0-0); TOTAL CELLS COUNTED 100
[2017-09-25] MEDS: NORepinephrine 8mg/ 250ml NS 250 ML IV PRN (01:13)
[2017-09-25 01:14] LABS: ANISOCYTOSIS 1+; PLATELET ESTIMATE NORMAL; TOXIC GRANULATION 2+
[2017-09-25] MEDS: methylPREDNISolone sod succ 125mg/2ml vial IV SCH ×2 (02:12→08:03)
[2017-09-25] MEDS: mineral oil/petrolatum ophthal oint EACHEYE SCH ×4 (02:12→20:04)
[2017-09-25] MEDS: insulin regular, human vial - multi-dose SQ SCH ×4 (02:15→20:28)
[2017-09-25 02:28] LABS: BASOPHILS % (AUTO) 0 % (0-1); EOSINOPHILS # (AUTO) 0.3 X10'3 (0-0.9); EOSINOPHILS % (AUTO) 1.1 % (0-6); HEMATOCRIT 30.4 % (42.0-52.0); HEMOGLOBIN 10.2 g/dl (14.0-17.9); LYMPHOCYTES # (AUTO) 0.2 X10'3 (1.1-4.8); LYMPHOCYTES % (AUTO) 0.6 % (21-51); MEAN CORPUSCULAR HEMOGLOBIN 32.4 PG (27.0-31.0); MEAN CORPUSCULAR HGB CONC 33.5 % (33.0-36.5); MEAN CORPUSCULAR VOLUME 96.7 FL (78-98); MEAN PLATELET VOLUME 9.4 FL (7.4-10.4); MONOCYTES # (AUTO) 0.3 X10'3 (0-0.9); MONOCYTES % (AUTO) 0.9 % (2-12); NEUTROPHILS # (AUTO) 26.3 X10'3 (1.8-7.7); NEUTROPHILS % (AUTO) 97.4 % (42-75); PLATELET COUNT 203 X10'3 (140-440); RED BLOOD COUNT 3.14 X10'6 (4.70-6.10); RED CELL DISTRIBUTION WIDTH 17.4 % (11.5-14.5)
[2017-09-25 02:38] LABS: INR 1.4 INR; PROTHROMBIN TIME 14.6 SECONDS (9.0-12.0)
[2017-09-25 02:46] LABS: ALANINE AMINOTRANSFERASE 34 U/L (12-78); ALBUMIN 1.6 G/DL (3.4-5.0); ALBUMIN/GLOBULIN RATIO 0.5 (1.1-1.5); ALKALINE PHOSPHATASE 58 IU/L (46-116); ANION GAP 15 (8-16); ASPARTATE AMINO TRANSFERASE 35 U/L (10-37); BILIRUBIN,TOTAL 0.3 MG/DL (0.1-1.0); BLOOD UREA NITROGEN 140 MG/DL (7-18); BUN/CREATININE RATIO 33.7 (5.4-32.0); CALCIUM 8.5 MG/DL (8.5-10.1); CHLORIDE 105 MMOL/L (99-107); CREATININE 4.15 MG/DL (0.60-1.10); GLUCOSE 195 MG/DL (70-104); MAGNESIUM 2.5 MG/DL (1.5-2.4); PHOSPHORUS 4.7 MG/DL (2.3-4.5); POTASSIUM 4.8 MMOL/L (3.5-5.1); SODIUM 137 MMOL/L (135-145); TOTAL PROTEIN 5.1 G/DL (6.4-8.2); eGFR 14 ML/MIN
[2017-09-25] MEDS: ipratropium/albuterol 3ml nebule NEB SCH ×6 (03:19→23:25)
[2017-09-25 03:31] LABS: ABG BASE EXCESS -13.2 mmol/L (-2.0-3.0); ABG HCO3 13.6 mmol/L (22.0-26.0); ABG OXYGEN SATURATION 95.8 % (95-98); ABG PH (T) 7.225 (7.350-7.450); ABG PO2 (T) 84.4 mmHg (83-108); ALLEN'S TEST Positive; FCOHb 0.3 % (0.5-1.5); FMetHb 0.2 % (0.3-1.12); FO2Hb 95.3 % (94-100); PEEP 5 cm H2O; RESPIRATORY RATE 22 b/min; RESPIRATORY RATE (OBSERVED) 23 b/min; TOTAL HEMOGLOBIN 11.1 G/dl (14.0-18.0)
[2017-09-25] MEDS ORDERED: cefepime 1GM/NS ADD-VANTAGE 100 ML IV ONE (03:35)
[2017-09-25] MEDS: amiodarone/D5 360MG/200ML BAG 200 ML IV SCH ×2 (04:50→16:55)
[2017-09-25] MEDS ORDERED: levoFLOXACIN-Levaquin 250mg/D5 50 ML IV SCH (08:00)
[2017-09-25] MEDS: losartan 50mg tablet PO SCH (08:00)
[2017-09-25] MEDS: sotalol 80mg tablet PO SCH ×2 (08:00→20:00)
[2017-09-25] MEDS: ferrous sulfate 300mg/5ml UD oral liquid PO SCH ×2 (08:02→20:04)
[2017-09-25] MEDS: buPROPion 75mg tablet PO SCH ×2 (08:03→20:05)
[2017-09-25] MEDS: famotidine/PF 10 mg/ml inj IV SCH ×2 (08:03→20:04)
[2017-09-25] MEDS: calcium carbonate 500mg tablet PO SCH ×2 (08:03→20:05)
[2017-09-25] MEDS: levoFLOXACIN-Levaquin 250mg/D5 50 ML IV SCH (08:03)
[2017-09-25] MEDS: lactobacillus rhamnosus 10,000 MMU CELLS/CAPSULE PO SCH ×2 (08:03→20:04)
[2017-09-25] MEDS: aspirin 81mg tab.chew PO SCH (08:03)
[2017-09-25] MEDS: ascorbic acid 500mg tablet PO SCH (08:03)
[2017-09-25] MEDS: apixaban 5mg tablet PO SCH ×2 (08:03→20:05)
[2017-09-25 08:54] LABS: BASOPHILS % (AUTO) 0 % (0-1); EOSINOPHILS # (AUTO) 0.6 X10'3 (0-0.9); EOSINOPHILS % (AUTO) 1.9 % (0-6); HEMATOCRIT 30.9 % (42.0-52.0); HEMOGLOBIN 10.5 g/dl (14.0-17.9); LYMPHOCYTES # (AUTO) 0.3 X10'3 (1.1-4.8); LYMPHOCYTES % (AUTO) 0.9 % (21-51); MEAN CORPUSCULAR VOLUME 94.2 FL (78-98); MEAN PLATELET VOLUME 9.4 FL (7.4-10.4); MONOCYTES # (AUTO) 0.2 X10'3 (0-0.9); MONOCYTES % (AUTO) 0.5 % (2-12); NEUTROPHILS # (AUTO) 30.5 X10'3 (1.8-7.7); NEUTROPHILS % (AUTO) 96.7 % (42-75); PLATELET COUNT 201 X10'3 (140-440); RED BLOOD COUNT 3.28 X10'6 (4.70-6.10); RED CELL DISTRIBUTION WIDTH 17.3 % (11.5-14.5)
[2017-09-25 09:10] LABS: WHITE BLOOD COUNT 31.5 X10'3 (4.5-11.0)
[2017-09-25 09:24] LABS: ALBUMIN 1.6 G/DL (3.4-5.0); ANION GAP 14 (8-16); BLOOD UREA NITROGEN 115 MG/DL (7-18); BUN/CREATININE RATIO 33.8 (5.4-32.0); CHLORIDE 105 MMOL/L (99-107); GLUCOSE 210 MG/DL (70-104); MAGNESIUM 2.3 MG/DL (1.5-2.4); POTASSIUM 4.3 MMOL/L (3.5-5.1); SODIUM 139 MMOL/L (135-145); TOTAL CARBON DIOXIDE 20.5 MMOL/L (24-32); eGFR 18 ML/MIN
[2017-09-25 09:42] LABS: NUCLEATED RED BLOOD CELLS 2 /100WBC (0-0); TOTAL CELLS COUNTED 100
[2017-09-25 09:44] LABS: PLATELET ESTIMATE NORMAL
[2017-09-25 09:46] LABS: LARGE PLATELETS MODERATE; TARGET CELLS 1+; TOXIC GRANULATION 3+
[2017-09-25 09:47] LABS: TOXIC VACUOLATION 1+
[2017-09-25] MEDS: normal saline 1000ml 1,000 ML IV SCH (10:20)
[2017-09-25] MEDS: methylnaltrexone br 12mg/0.6ml inj***SubQ only SQ SCH (11:32)
[2017-09-25] MEDS: methylPREDNISolone sod succ/PF 40mg inj. IV SCH ×2 (13:58→20:05)
[2017-09-25 14:38] LABS: BASOPHILS % (AUTO) 0 % (0-1); EOSINOPHILS # (AUTO) 0.3 X10'3 (0-0.9); EOSINOPHILS % (AUTO) 0.9 % (0-6); HEMATOCRIT 30.2 % (42.0-52.0); HEMOGLOBIN 10.1 g/dl (14.0-17.9); LYMPHOCYTES # (AUTO) 0.3 X10'3 (1.1-4.8); LYMPHOCYTES % (AUTO) 0.8 % (21-51); MEAN CORPUSCULAR HEMOGLOBIN 32.1 PG (27.0-31.0); MEAN CORPUSCULAR HGB CONC 33.6 % (33.0-36.5); MEAN CORPUSCULAR VOLUME 95.5 FL (78-98); MEAN PLATELET VOLUME 9.3 FL (7.4-10.4); MONOCYTES # (AUTO) 0.3 X10'3 (0-0.9); MONOCYTES % (AUTO) 0.8 % (2-12); NEUTROPHILS # (AUTO) 32.4 X10'3 (1.8-7.7); NEUTROPHILS % (AUTO) 97.5 % (42-75); PLATELET COUNT 185 X10'3 (140-440); RED BLOOD COUNT 3.16 X10'6 (4.70-6.10); RED CELL DISTRIBUTION WIDTH 17.5 % (11.5-14.5)
[2017-09-25 14:40] LABS: WHITE BLOOD COUNT 33.2 X10'3 (4.5-11.0)
[2017-09-25 14:47] LABS: ALBUMIN 1.6 G/DL (3.4-5.0); ANION GAP 12 (8-16); BLOOD UREA NITROGEN 99 MG/DL (7-18); BUN/CREATININE RATIO 33.1 (5.4-32.0); CHLORIDE 105 MMOL/L (99-107); CREATININE 2.99 MG/DL (0.60-1.10); GLUCOSE 167 MG/DL (70-104); MAGNESIUM 2.1 MG/DL (1.5-2.4); PHOSPHORUS 3.4 MG/DL (2.3-4.5); POTASSIUM 4.1 MMOL/L (3.5-5.1); SODIUM 139 MMOL/L (135-145); TOTAL CARBON DIOXIDE 22.5 MMOL/L (24-32); eGFR 21 ML/MIN
[2017-09-25] MEDS: calcium chloride inj. 10,000 MG in normal saline 500ml IV soln 400 ML IV PRN (15:45)
[2017-09-25] MEDS: atorvastatin 20mg tablet PO SCH (20:04)
[2017-09-25] MEDS: insulin glargine (Lantus) pen - multi-dose SQ SCH (20:26)
[2017-09-25 20:39] LABS: BASOPHILS % (AUTO) 0 % (0-1); EOSINOPHILS # (AUTO) 0.4 X10'3 (0-0.9); EOSINOPHILS % (AUTO) 1.6 % (0-6); HEMATOCRIT 28.3 % (42.0-52.0); HEMOGLOBIN 9.5 g/dl (14.0-17.9); LYMPHOCYTES # (AUTO) 0.2 X10'3 (1.1-4.8); LYMPHOCYTES % (AUTO) 0.7 % (21-51); MEAN CORPUSCULAR HEMOGLOBIN 31.9 PG (27.0-31.0); MEAN CORPUSCULAR HGB CONC 33.6 % (33.0-36.5); MEAN PLATELET VOLUME 9.6 FL (7.4-10.4); MONOCYTES # (AUTO) 0.3 X10'3 (0-0.9); MONOCYTES % (AUTO) 1.1 % (2-12); NEUTROPHILS # (AUTO) 22.5 X10'3 (1.8-7.7); NEUTROPHILS % (AUTO) 96.6 % (42-75); PLATELET COUNT 173 X10'3 (140-440); RED BLOOD COUNT 2.98 X10'6 (4.70-6.10); RED CELL DISTRIBUTION WIDTH 16.8 % (11.5-14.5); WHITE BLOOD COUNT 23.3 X10'3 (4.5-11.0)
[2017-09-25 20:43] LABS: ALBUMIN 1.5 G/DL (3.4-5.0); ANION GAP 12 (8-16); BLOOD UREA NITROGEN 91 MG/DL (7-18); BUN/CREATININE RATIO 31.1 (5.4-32.0); CHLORIDE 106 MMOL/L (99-107); CREATININE 2.93 MG/DL (0.60-1.10); GLUCOSE 162 MG/DL (70-104); PHOSPHORUS 3.5 MG/DL (2.3-4.5); POTASSIUM 4.1 MMOL/L (3.5-5.1); SODIUM 141 MMOL/L (135-145); TOTAL CARBON DIOXIDE 22.8 MMOL/L (24-32); eGFR 21 ML/MIN
[2017-09-26] VITALS (24 sets, daily range): BP systolic 107–172; BP diastolic 50–81
[2017-09-26] MEDS: midazolam 100mg in NS 100ml 100 ML IV PRN ×2 (00:24→20:17)
[2017-09-26] MEDS: FENTANYL-0.9 % NACL/PF 100 ML IV PRN ×2 (00:25→17:00)
[2017-09-26] MEDS: Duosol 4k/NO Calcium 5,000 ML HE SCH ×12 (00:25→22:24)
[2017-09-26] MEDS: citrate dextrose 1000ml IV sol 1,000 ML IV PRN ×7 (00:26→20:38)
[2017-09-26 01:28] LABS: BASOPHILS % (AUTO) 0 % (0-1); EOSINOPHILS # (AUTO) 0.3 X10'3 (0-0.9); EOSINOPHILS % (AUTO) 1.2 % (0-6); HEMOGLOBIN 9.4 g/dl (14.0-17.9); LYMPHOCYTES # (AUTO) 0.2 X10'3 (1.1-4.8); LYMPHOCYTES % (AUTO) 0.8 % (21-51); MEAN CORPUSCULAR HEMOGLOBIN 31.8 PG (27.0-31.0); MEAN CORPUSCULAR HGB CONC 33.8 % (33.0-36.5); MEAN CORPUSCULAR VOLUME 94.2 FL (78-98); MEAN PLATELET VOLUME 9.4 FL (7.4-10.4); MONOCYTES # (AUTO) 0.6 X10'3 (0-0.9); MONOCYTES % (AUTO) 2.2 % (2-12); NEUTROPHILS # (AUTO) 24.4 X10'3 (1.8-7.7); NEUTROPHILS % (AUTO) 95.8 % (42-75); PLATELET COUNT 168 X10'3 (140-440); RED BLOOD COUNT 2.97 X10'6 (4.70-6.10); RED CELL DISTRIBUTION WIDTH 17.2 % (11.5-14.5)
[2017-09-26 01:34] LABS: INR 1.4 INR; PARTIAL THROMBOPLASTIN TIME 30 SECONDS (22-32); PROTHROMBIN TIME 14.2 SECONDS (9.0-12.0)
[2017-09-26 01:35] LABS: ALBUMIN 1.5 G/DL (3.4-5.0); ANION GAP 14 (8-16); BLOOD UREA NITROGEN 77 MG/DL (7-18); CHLORIDE 105 MMOL/L (99-107); CREATININE 2.41 MG/DL (0.60-1.10); GLUCOSE 166 MG/DL (70-104); PHOSPHORUS 3.3 MG/DL (2.3-4.5); POTASSIUM 4.1 MMOL/L (3.5-5.1); SODIUM 141 MMOL/L (135-145); TOTAL CARBON DIOXIDE 22.2 MMOL/L (24-32); WHITE BLOOD COUNT 25.5 X10'3 (4.5-11.0); eGFR 27 ML/MIN
[2017-09-26] MEDS: methylPREDNISolone sod succ/PF 40mg inj. IV SCH ×2 (01:44→08:11)
[2017-09-26] MEDS: insulin regular, human vial - multi-dose SQ SCH ×4 (01:52→20:21)
[2017-09-26] MEDS: mineral oil/petrolatum ophthal oint EACHEYE SCH ×4 (02:00→20:20)
[2017-09-26] MEDS: ipratropium/albuterol 3ml nebule NEB SCH ×6 (03:16→23:25)
[2017-09-26 04:11] LABS: ABG BASE EXCESS -3.6 mmol/L (-2.0-3.0); ABG HCO3 21.4 mmol/L (22.0-26.0); ABG OXYGEN SATURATION 93.8 % (95-98); ABG PH (T) 7.386 (7.350-7.450); ABG PO2 (T) 64.2 mmHg (83-108); ALLEN'S TEST Positive; FCOHb 0.3 % (0.5-1.5); FMetHb 0.3 % (0.3-1.12); FO2Hb 93.2 % (94-100); MINUTE VOLUME 15 L/min; PATIENT TEMPERATURE 35.5; PEEP 5 cm H2O; RESPIRATORY RATE 22 b/min; RESPIRATORY RATE (OBSERVED) 22 b/min; TOTAL HEMOGLOBIN 10.2 G/dl (14.0-18.0)
[2017-09-26] MEDS: calcium chloride inj. 10,000 MG in normal saline 500ml IV soln 400 ML IV PRN ×3 (06:09→16:02)
[2017-09-26] MEDS: sotalol 80mg tablet PO SCH ×2 (07:40→20:17)
[2017-09-26] MEDS: losartan 50mg tablet PO SCH (08:00)
[2017-09-26] MEDS: levoFLOXACIN-Levaquin 250mg/D5 50 ML IV SCH (08:10)
[2017-09-26] MEDS: ferrous sulfate 300mg/5ml UD oral liquid PO SCH ×2 (08:11→20:18)
[2017-09-26] MEDS: ascorbic acid 500mg tablet PO SCH (08:11)
[2017-09-26] MEDS: calcium carbonate 500mg tablet PO SCH ×2 (08:11→20:17)
[2017-09-26] MEDS: apixaban 5mg tablet PO SCH ×2 (08:11→20:17)
[2017-09-26] MEDS: buPROPion 75mg tablet PO SCH ×2 (08:11→20:17)
[2017-09-26] MEDS: aspirin 81mg tab.chew PO SCH (08:11)
[2017-09-26] MEDS: lactobacillus rhamnosus 10,000 MMU CELLS/CAPSULE PO SCH ×2 (08:11→20:17)
[2017-09-26] MEDS: famotidine/PF 10 mg/ml inj IV SCH ×2 (08:11→20:18)
[2017-09-26 08:31] LABS: BASOPHILS % (AUTO) 0 % (0-1); EOSINOPHILS # (AUTO) 0.4 X10'3 (0-0.9); EOSINOPHILS % (AUTO) 1.7 % (0-6); HEMATOCRIT 27.1 % (42.0-52.0); HEMOGLOBIN 9.3 g/dl (14.0-17.9); LYMPHOCYTES # (AUTO) 0.2 X10'3 (1.1-4.8); LYMPHOCYTES % (AUTO) 1.1 % (21-51); MEAN CORPUSCULAR HEMOGLOBIN 32.6 PG (27.0-31.0); MEAN CORPUSCULAR HGB CONC 34.5 % (33.0-36.5); MEAN CORPUSCULAR VOLUME 94.4 FL (78-98); MEAN PLATELET VOLUME 9.2 FL (7.4-10.4); MONOCYTES # (AUTO) 0.5 X10'3 (0-0.9); MONOCYTES % (AUTO) 2.1 % (2-12); NEUTROPHILS # (AUTO) 20.9 X10'3 (1.8-7.7); NEUTROPHILS % (AUTO) 95.1 % (42-75); PLATELET COUNT 167 X10'3 (140-440); RED BLOOD COUNT 2.87 X10'6 (4.70-6.10); RED CELL DISTRIBUTION WIDTH 17.2 % (11.5-14.5); WHITE BLOOD COUNT 21.9 X10'3 (4.5-11.0)
[2017-09-26 08:37] LABS: ALBUMIN 1.5 G/DL (3.4-5.0); ANION GAP 13 (8-16); BLOOD UREA NITROGEN 67 MG/DL (7-18); BUN/CREATININE RATIO 30.2 (5.4-32.0); CHLORIDE 105 MMOL/L (99-107); CREATININE 2.22 MG/DL (0.60-1.10); GLUCOSE 171 MG/DL (70-104); MAGNESIUM 1.9 MG/DL (1.5-2.4); PHOSPHORUS 2.9 MG/DL (2.3-4.5); POTASSIUM 4.1 MMOL/L (3.5-5.1); SODIUM 142 MMOL/L (135-145); eGFR 30 ML/MIN
[2017-09-26 09:21] LABS: NUCLEATED RED BLOOD CELLS 2 /100WBC (0-0); TOTAL CELLS COUNTED 100
[2017-09-26 09:25] LABS: ANISOCYTOSIS 1+; PLATELET ESTIMATE NORMAL; POLYCHROMASIA 1+
[2017-09-26 09:26] LABS: SCHISTOCYTES FEW; TARGET CELLS 1+
[2017-09-26 09:27] LABS: TOXIC GRANULATION 3+
[2017-09-26 13:55] LABS: PREALBUMIN 16.8 MG/DL (19-36)
[2017-09-26 14:37] LABS: BASOPHILS % (AUTO) 0 % (0-1); EOSINOPHILS # (AUTO) 0.3 X10'3 (0-0.9); EOSINOPHILS % (AUTO) 1.6 % (0-6); HEMATOCRIT 26.6 % (42.0-52.0); HEMOGLOBIN 9.1 g/dl (14.0-17.9); LYMPHOCYTES # (AUTO) 0.1 X10'3 (1.1-4.8); LYMPHOCYTES % (AUTO) 0.4 % (21-51); MEAN CORPUSCULAR HEMOGLOBIN 32.4 PG (27.0-31.0); MEAN CORPUSCULAR HGB CONC 34.1 % (33.0-36.5); MEAN CORPUSCULAR VOLUME 95.1 FL (78-98); MEAN PLATELET VOLUME 9.6 FL (7.4-10.4); MONOCYTES # (AUTO) 0.2 X10'3 (0-0.9); MONOCYTES % (AUTO) 0.7 % (2-12); NEUTROPHILS # (AUTO) 21.2 X10'3 (1.8-7.7); NEUTROPHILS % (AUTO) 97.3 % (42-75); PLATELET COUNT 170 X10'3 (140-440); RED BLOOD COUNT 2.79 X10'6 (4.70-6.10); RED CELL DISTRIBUTION WIDTH 17.4 % (11.5-14.5); WHITE BLOOD COUNT 21.8 X10'3 (4.5-11.0)
[2017-09-26 14:48] LABS: ALBUMIN 1.5 G/DL (3.4-5.0); ANION GAP 8 (8-16); BLOOD UREA NITROGEN 63 MG/DL (7-18); BUN/CREATININE RATIO 29.3 (5.4-32.0); CHLORIDE 105 MMOL/L (99-107); CREATININE 2.15 MG/DL (0.60-1.10); GLUCOSE 195 MG/DL (70-104); MAGNESIUM 1.8 MG/DL (1.5-2.4); PHOSPHORUS 2.9 MG/DL (2.3-4.5); POTASSIUM 4.1 MMOL/L (3.5-5.1); SODIUM 140 MMOL/L (135-145); TOTAL CARBON DIOXIDE 26.6 MMOL/L (24-32); eGFR 31 ML/MIN
[2017-09-26] MEDS: amiodarone/D5 360MG/200ML BAG 200 ML IV SCH (16:11)
[2017-09-26 20:16] LABS: ABG BASE EXCESS -4.8 mmol/L (-2.0-3.0); ABG OXYGEN SATURATION 94.8 % (95-98); ABG PCO2 (T) 40.7 mmHg (35.0-48.0); ABG PH (T) 7.327 (7.350-7.450); ABG PO2 (T) 77.4 mmHg (83-108); ALLEN'S TEST Positive; FCOHb 0.3 % (0.5-1.5); FMetHb 0.3 % (0.3-1.12); FO2Hb 94.2 % (94-100); MINUTE VOLUME 14 L/min; PATIENT TEMPERATURE 36.3; PEEP 5 cm H2O; RESPIRATORY RATE (OBSERVED) 20 b/min; TOTAL HEMOGLOBIN 10.5 G/dl (14.0-18.0)
[2017-09-26] MEDS: atorvastatin 20mg tablet PO SCH (20:16)
[2017-09-26 20:19] LABS: BASOPHILS % (AUTO) 0 % (0-1); EOSINOPHILS # (AUTO) 0.5 X10'3 (0-0.9); EOSINOPHILS % (AUTO) 1.7 % (0-6); HEMATOCRIT 29.2 % (42.0-52.0); HEMOGLOBIN 9.8 g/dl (14.0-17.9); LYMPHOCYTES # (AUTO) 0.2 X10'3 (1.1-4.8); LYMPHOCYTES % (AUTO) 0.5 % (21-51); MEAN CORPUSCULAR HEMOGLOBIN 32.1 PG (27.0-31.0); MEAN CORPUSCULAR HGB CONC 33.6 % (33.0-36.5); MEAN CORPUSCULAR VOLUME 95.4 FL (78-98); MEAN PLATELET VOLUME 9.8 FL (7.4-10.4); MONOCYTES # (AUTO) 0.4 X10'3 (0-0.9); MONOCYTES % (AUTO) 1.4 % (2-12); NEUTROPHILS # (AUTO) 30.1 X10'3 (1.8-7.7); NEUTROPHILS % (AUTO) 96.4 % (42-75); PLATELET COUNT 182 X10'3 (140-440); RED BLOOD COUNT 3.06 X10'6 (4.70-6.10); RED CELL DISTRIBUTION WIDTH 17.4 % (11.5-14.5)
[2017-09-26 20:21] LABS: WHITE BLOOD COUNT 31.2 X10'3 (4.5-11.0)
[2017-09-26] MEDS: insulin glargine (Lantus) pen - multi-dose SQ SCH (20:22)
[2017-09-26 20:31] LABS: ALBUMIN 1.7 G/DL (3.4-5.0); ANION GAP 8 (8-16); BLOOD UREA NITROGEN 55 MG/DL (7-18); BUN/CREATININE RATIO 29.1 (5.4-32.0); CHLORIDE 106 MMOL/L (99-107); CREATININE 1.89 MG/DL (0.60-1.10); GLUCOSE 157 MG/DL (70-104); PHOSPHORUS 3.3 MG/DL (2.3-4.5); POTASSIUM 4.4 MMOL/L (3.5-5.1); SODIUM 142 MMOL/L (135-145); TOTAL CARBON DIOXIDE 27.7 MMOL/L (24-32); eGFR 36 ML/MIN
[2017-09-26 20:38] LABS: ANISOCYTOSIS 1+; PLATELET ESTIMATE NORMAL; TOTAL CELLS COUNTED 100; TOXIC GRANULATION 1+
[2017-09-27] VITALS (23 sets, daily range): BP systolic 96–169; BP diastolic 51–78
[2017-09-27] MEDS: Duosol 4k/NO Calcium 5,000 ML HE SCH ×5 (01:07→08:33)
[2017-09-27] MEDS: citrate dextrose 1000ml IV sol 1,000 ML IV PRN ×2 (01:59→04:09)
[2017-09-27] MEDS: mineral oil/petrolatum ophthal oint EACHEYE SCH ×4 (01:59→20:27)
[2017-09-27] MEDS: insulin regular, human vial - multi-dose SQ SCH ×4 (02:07→20:40)
[2017-09-27 02:12] LABS: BASOPHILS % (AUTO) 0 % (0-1); EOSINOPHILS # (AUTO) 0.6 X10'3 (0-0.9); EOSINOPHILS % (AUTO) 1.9 % (0-6); HEMATOCRIT 27.1 % (42.0-52.0); HEMOGLOBIN 9.1 g/dl (14.0-17.9); LYMPHOCYTES # (AUTO) 0.2 X10'3 (1.1-4.8); LYMPHOCYTES % (AUTO) 0.6 % (21-51); MEAN CORPUSCULAR HEMOGLOBIN 32.3 PG (27.0-31.0); MEAN CORPUSCULAR HGB CONC 33.7 % (33.0-36.5); MEAN CORPUSCULAR VOLUME 95.8 FL (78-98); MEAN PLATELET VOLUME 9.5 FL (7.4-10.4); MONOCYTES # (AUTO) 0.7 X10'3 (0-0.9); MONOCYTES % (AUTO) 2.4 % (2-12); NEUTROPHILS # (AUTO) 27.3 X10'3 (1.8-7.7); NEUTROPHILS % (AUTO) 95.1 % (42-75); PLATELET COUNT 175 X10'3 (140-440); RED BLOOD COUNT 2.82 X10'6 (4.70-6.10); RED CELL DISTRIBUTION WIDTH 16.8 % (11.5-14.5)
[2017-09-27 02:14] LABS: WHITE BLOOD COUNT 28.7 X10'3 (4.5-11.0)
[2017-09-27 02:26] LABS: ALANINE AMINOTRANSFERASE 40 U/L (12-78); ALBUMIN 1.5 G/DL (3.4-5.0); ALBUMIN/GLOBULIN RATIO 0.5 (1.1-1.5); ALKALINE PHOSPHATASE 50 IU/L (46-116); ANION GAP 7 (8-16); ASPARTATE AMINO TRANSFERASE 31 U/L (10-37); BILIRUBIN,TOTAL 0.5 MG/DL (0.1-1.0); BLOOD UREA NITROGEN 53 MG/DL (7-18); BUN/CREATININE RATIO 29.3 (5.4-32.0); CALCIUM 8.5 MG/DL (8.5-10.1); CHLORIDE 105 MMOL/L (99-107); CREATININE 1.81 MG/DL (0.60-1.10); GLUCOSE 180 MG/DL (70-104); MAGNESIUM 1.9 MG/DL (1.5-2.4); PHOSPHORUS 2.5 MG/DL (2.3-4.5); POTASSIUM 4.3 MMOL/L (3.5-5.1); PREALBUMIN 18.2 MG/DL (19-36); SODIUM 140 MMOL/L (135-145); TOTAL CARBON DIOXIDE 28.3 MMOL/L (24-32); TOTAL PROTEIN 4.8 G/DL (6.4-8.2); eGFR 37 ML/MIN
[2017-09-27 02:46] LABS: TOTAL CELLS COUNTED 100
[2017-09-27 02:47] LABS: ANISOCYTOSIS 1+; NUCLEATED RED BLOOD CELLS 2 /100WBC (0-0); PLATELET ESTIMATE NORMAL; SMUDGE CELLS 1+
[2017-09-27 02:49] LABS: HYPOCHROMASIA 2+
[2017-09-27 02:51] LABS: SCHISTOCYTES FEW
[2017-09-27 02:52] LABS: TOXIC GRANULATION 2+
[2017-09-27] MEDS: ipratropium/albuterol 3ml nebule NEB SCH ×6 (03:42→23:20)
[2017-09-27 03:55] LABS: ABG BASE EXCESS -0.1 mmol/L (-2.0-3.0); ABG HCO3 25.4 mmol/L (22.0-26.0); ABG OXYGEN SATURATION 94.6 % (95-98); ABG PCO2 (T) 45.5 mmHg (35.0-48.0); ABG PH (T) 7.365 (7.350-7.450); ABG PO2 (T) 76.6 mmHg (83-108); ALLEN'S TEST Positive; FCOHb 0.3 % (0.5-1.5); FMetHb 0.3 % (0.3-1.12); MINUTE VOLUME 13 L/min; PEEP 5 cm H2O; RESPIRATORY RATE (OBSERVED) 17 b/min; TOTAL HEMOGLOBIN 9.9 G/dl (14.0-18.0)
[2017-09-27] MEDS: amiodarone/D5 360MG/200ML BAG 200 ML IV SCH ×2 (04:09→16:42)
[2017-09-27] MEDS: FENTANYL-0.9 % NACL/PF 100 ML IV PRN ×2 (04:09→21:11)
[2017-09-27] MEDS ORDERED: heparin 10,000 units/1 ML INJ IV ONE (05:15)
[2017-09-27] MEDS: levoFLOXACIN-Levaquin 250mg/D5 50 ML IV SCH (08:32)
[2017-09-27] MEDS: famotidine/PF 10 mg/ml inj IV SCH ×2 (08:33→20:28)
[2017-09-27] MEDS: ferrous sulfate 300mg/5ml UD oral liquid PO SCH ×2 (08:35→20:28)
[2017-09-27] MEDS: buPROPion 75mg tablet PO SCH ×2 (08:35→20:27)
[2017-09-27] MEDS: apixaban 5mg tablet PO SCH ×2 (08:35→20:28)
[2017-09-27] MEDS: aspirin 81mg tab.chew PO SCH (08:35)
[2017-09-27] MEDS: lactobacillus rhamnosus 10,000 MMU CELLS/CAPSULE PO SCH ×2 (08:35→20:28)
[2017-09-27] MEDS: ascorbic acid 500mg tablet PO SCH (08:35)
[2017-09-27] MEDS: calcium carbonate 500mg tablet PO SCH ×2 (08:35→20:27)
[2017-09-27] MEDS: methylnaltrexone br 12mg/0.6ml inj***SubQ only SQ SCH (08:36)
[2017-09-27] MEDS: losartan 50mg tablet PO SCH (09:58)
[2017-09-27] MEDS: sotalol 80mg tablet PO SCH ×2 (09:58→20:28)
[2017-09-27] MEDS: normal saline 1000ml 1,000 ML IV SCH (10:20)
[2017-09-27] MEDS: midazolam 100mg in NS 100ml 100 ML IV PRN (16:40)
[2017-09-27] MEDS: atorvastatin 20mg tablet PO SCH (20:27)
[2017-09-27] MEDS: insulin glargine (Lantus) pen - multi-dose SQ SCH (20:41)
[2017-09-28] VITALS (22 sets, daily range): BP systolic 91–173; BP diastolic 46–72
[2017-09-28 02:02] LABS: BASOPHILS % (AUTO) 0 % (0-1); EOSINOPHILS % (AUTO) 0 % (0-6); HEMATOCRIT 27.2 % (42.0-52.0); HEMOGLOBIN 9.4 g/dl (14.0-17.9); LYMPHOCYTES # (AUTO) 0.4 X10'3 (1.1-4.8); LYMPHOCYTES % (AUTO) 1.4 % (21-51); MEAN CORPUSCULAR HEMOGLOBIN 32.4 PG (27.0-31.0); MEAN CORPUSCULAR HGB CONC 34.5 % (33.0-36.5); MEAN CORPUSCULAR VOLUME 93.9 FL (78-98); MEAN PLATELET VOLUME 10.3 FL (7.4-10.4); MONOCYTES # (AUTO) 0.5 X10'3 (0-0.9); MONOCYTES % (AUTO) 1.5 % (2-12); NEUTROPHILS # (AUTO) 31.1 X10'3 (1.8-7.7); NEUTROPHILS % (AUTO) 97.1 % (42-75); PLATELET COUNT 202 X10'3 (140-440); RED CELL DISTRIBUTION WIDTH 15.9 % (11.5-14.5)
[2017-09-28 02:15] LABS: ALANINE AMINOTRANSFERASE 33 U/L (12-78); ALBUMIN 1.5 G/DL (3.4-5.0); ALBUMIN/GLOBULIN RATIO 0.4 (1.1-1.5); ALKALINE PHOSPHATASE 51 IU/L (46-116); ANION GAP 11 (8-16); ASPARTATE AMINO TRANSFERASE 27 U/L (10-37); BILIRUBIN,TOTAL 0.4 MG/DL (0.1-1.0); BLOOD UREA NITROGEN 94 MG/DL (7-18); BUN/CREATININE RATIO 30.9 (5.4-32.0); CALCIUM 8.7 MG/DL (8.5-10.1); CHLORIDE 105 MMOL/L (99-107); CREATININE 3.04 MG/DL (0.60-1.10); GLUCOSE 111 MG/DL (70-104); MAGNESIUM 2.1 MG/DL (1.5-2.4); PHOSPHORUS 3.8 MG/DL (2.3-4.5); POTASSIUM 4.9 MMOL/L (3.5-5.1); SODIUM 142 MMOL/L (135-145); TOTAL CARBON DIOXIDE 26.5 MMOL/L (24-32); eGFR 21 ML/MIN
[2017-09-28] MEDS: mineral oil/petrolatum ophthal oint EACHEYE SCH ×4 (02:23→20:11)
[2017-09-28] MEDS: insulin regular, human vial - multi-dose SQ SCH ×4 (02:25→20:45)
[2017-09-28 02:34] LABS: ANISOCYTOSIS 1+; HYPOCHROMASIA 2+; PLATELET ESTIMATE NORMAL; SCHISTOCYTES FEW; TOTAL CELLS COUNTED 100; TOXIC GRANULATION 2+
[2017-09-28 02:35] LABS: TARGET CELLS 1+
[2017-09-28] MEDS: ipratropium/albuterol 3ml nebule NEB SCH ×6 (03:19→23:09)
[2017-09-28] MEDS: amiodarone/D5 360MG/200ML BAG 200 ML IV SCH ×2 (05:07→16:57)
[2017-09-28 05:16] LABS: ABG BASE EXCESS -5.4 mmol/L (-2.0-3.0); ABG HCO3 21.4 mmol/L (22.0-26.0); ABG OXYGEN SATURATION 92.1 % (95-98); ABG PCO2 (T) 47.5 mmHg (35.0-48.0); ABG PH (T) 7.271 (7.350-7.450); ABG PO2 (T) 73.1 mmHg (83-108); ALLEN'S TEST Positive; FCOHb 0.1 % (0.5-1.5); FMetHb 0.3 % (0.3-1.12); FO2Hb 91.7 % (94-100); MINUTE VOLUME 9 L/min; PEEP 5 cm H2O; RESPIRATORY RATE 18 b/min; RESPIRATORY RATE (OBSERVED) 18 b/min; TIDAL VOLUME 425 mL
[2017-09-28] MEDS ORDERED: heparin 1,000 units/ml 10ml inj IV ONE (07:00)
[2017-09-28] MEDS ORDERED: heparin 1,000 units/ml 10ml inj HE ONE ×2 (07:30)
[2017-09-28] MEDS: lactobacillus rhamnosus 10,000 MMU CELLS/CAPSULE PO SCH ×3 (08:00→20:11)
[2017-09-28] MEDS: losartan 50mg tablet PO SCH (08:00)
[2017-09-28] MEDS: buPROPion 75mg tablet PO SCH ×3 (08:00→20:12)
[2017-09-28] MEDS: aspirin 81mg tab.chew PO SCH ×2 (08:00→09:40)
[2017-09-28] MEDS: ferrous sulfate 300mg/5ml UD oral liquid PO SCH ×3 (08:00→20:11)
[2017-09-28] MEDS: ascorbic acid 500mg tablet PO SCH ×2 (08:00→09:41)
[2017-09-28] MEDS: apixaban 5mg tablet PO SCH ×3 (08:00→20:11)
[2017-09-28] MEDS: calcium carbonate 500mg tablet PO SCH ×3 (08:00→20:11)
[2017-09-28] MEDS: sotalol 80mg tablet PO SCH ×2 (08:00→20:11)
[2017-09-28] MEDS: levoFLOXACIN-Levaquin 250mg/D5 50 ML IV SCH (09:38)
[2017-09-28] MEDS: famotidine/PF 10 mg/ml inj IV SCH ×2 (09:40→20:11)
[2017-09-28] MEDS: atorvastatin 20mg tablet PO SCH ×2 (09:46→20:12)
[2017-09-28] MEDS: enoxaparin 60mg/0.6ml syringe SUBCUT SCH (11:19)
[2017-09-28] MEDS: FENTANYL-0.9 % NACL/PF 100 ML IV PRN (12:19)
[2017-09-28] MEDS: enoxaparin 30mg/0.3ml syringe SUBCUT SCH (12:20)
[2017-09-28] MEDS: methylnaltrexone br 12mg/0.6ml inj***SubQ only SQ SCH (12:21)
[2017-09-28] MEDS: metoclopramide 5 mg/ml inj IV SCH ×2 (14:00→20:00)
[2017-09-28] MEDS: midazolam 100mg in NS 100ml 100 ML IV PRN (17:21)
[2017-09-28] MEDS: insulin glargine (Lantus) pen - multi-dose SQ SCH (20:46)
[2017-09-29] VITALS (24 sets, daily range): BP systolic 81–159; BP diastolic 33–67
[2017-09-29] MEDS: metoclopramide 5 mg/ml inj IV SCH ×4 (02:00→20:00)
[2017-09-29 02:20] LABS: BASOPHILS % (AUTO) 0 % (0-1); EOSINOPHILS # (AUTO) 0.5 X10'3 (0-0.9); EOSINOPHILS % (AUTO) 1.9 % (0-6); HEMATOCRIT 26.1 % (42.0-52.0); HEMOGLOBIN 8.7 g/dl (14.0-17.9); LYMPHOCYTES # (AUTO) 0.4 X10'3 (1.1-4.8); LYMPHOCYTES % (AUTO) 1.6 % (21-51); MEAN CORPUSCULAR HEMOGLOBIN 32.2 PG (27.0-31.0); MEAN CORPUSCULAR HGB CONC 33.5 % (33.0-36.5); MEAN CORPUSCULAR VOLUME 96.1 FL (78-98); MEAN PLATELET VOLUME 10.1 FL (7.4-10.4); MONOCYTES # (AUTO) 0.3 X10'3 (0-0.9); MONOCYTES % (AUTO) 0.9 % (2-12); NEUTROPHILS # (AUTO) 25.9 X10'3 (1.8-7.7); NEUTROPHILS % (AUTO) 95.6 % (42-75); PLATELET COUNT 182 X10'3 (140-440); RED BLOOD COUNT 2.71 X10'6 (4.70-6.10); RED CELL DISTRIBUTION WIDTH 16.7 % (11.5-14.5)
[2017-09-29] MEDS: mineral oil/petrolatum ophthal oint EACHEYE SCH ×4 (02:20→20:12)
[2017-09-29] MEDS: amiodarone/D5 360MG/200ML BAG 200 ML IV SCH (02:20)
[2017-09-29] MEDS: insulin regular, human vial - multi-dose SQ SCH ×2 (02:23→20:33)
[2017-09-29 02:45] LABS: ALANINE AMINOTRANSFERASE 29 U/L (12-78); ALBUMIN 1.3 G/DL (3.4-5.0); ALBUMIN/GLOBULIN RATIO 0.4 (1.1-1.5); ALKALINE PHOSPHATASE 53 IU/L (46-116); ANION GAP 10 (8-16); ASPARTATE AMINO TRANSFERASE 24 U/L (10-37); BILIRUBIN,TOTAL 0.4 MG/DL (0.1-1.0); BLOOD UREA NITROGEN 88 MG/DL (7-18); BUN/CREATININE RATIO 27.8 (5.4-32.0); CALCIUM 7.9 MG/DL (8.5-10.1); CHLORIDE 103 MMOL/L (99-107); CREATININE 3.17 MG/DL (0.60-1.10); GLUCOSE 116 MG/DL (70-104); MAGNESIUM 2.1 MG/DL (1.5-2.4); PHOSPHORUS 4.2 MG/DL (2.3-4.5); POTASSIUM 4.8 MMOL/L (3.5-5.1); SODIUM 140 MMOL/L (135-145); TOTAL CARBON DIOXIDE 27.2 MMOL/L (24-32); eGFR 20 ML/MIN
[2017-09-29] MEDS: ipratropium/albuterol 3ml nebule NEB SCH ×6 (03:24→22:35)
[2017-09-29 03:41] LABS: ABG BASE EXCESS -2.2 mmol/L (-2.0-3.0); ABG HCO3 23.6 mmol/L (22.0-26.0); ABG PH (T) 7.337 (7.350-7.450); ABG PO2 (T) 75.9 mmHg (83-108); ALLEN'S TEST Positive; FCOHb 0.4 % (0.5-1.5); FMetHb 0.3 % (0.3-1.12); FO2Hb 93.3 % (94-100); MINUTE VOLUME 10 L/min; PATIENT TEMPERATURE 36.8; PEEP 5 cm H2O; RESPIRATORY RATE 22 b/min; RESPIRATORY RATE (OBSERVED) 22 b/min; TIDAL VOLUME 425 mL; TOTAL HEMOGLOBIN 9.1 G/dl (14.0-18.0)
[2017-09-29 07:03] LABS: TOTAL CELLS COUNTED 100
[2017-09-29 07:05] LABS: ANISOCYTOSIS 1+; HYPOCHROMASIA 2+; PLATELET ESTIMATE NORMAL; POLYCHROMASIA 1+; SCHISTOCYTES FEW; SMUDGE CELLS 1+; TARGET CELLS 2+; TOXIC GRANULATION 2+
[2017-09-29] MEDS: levoFLOXACIN-Levaquin 250mg/D5 50 ML IV SCH (09:56)
[2017-09-29] MEDS: amiodarone 200mg tablet PO SCH ×2 (09:57→20:12)
[2017-09-29] MEDS: enoxaparin 60mg/0.6ml syringe SUBCUT SCH (09:57)
[2017-09-29] MEDS: enoxaparin 30mg/0.3ml syringe SUBCUT SCH (09:57)
[2017-09-29] MEDS: aspirin 81mg tab.chew PO SCH (09:57)
[2017-09-29] MEDS: apixaban 5mg tablet PO SCH ×2 (09:58→20:12)
[2017-09-29] MEDS: losartan 50mg tablet PO SCH (09:58)
[2017-09-29] MEDS: lactobacillus rhamnosus 10,000 MMU CELLS/CAPSULE PO SCH ×2 (09:58→20:12)
[2017-09-29] MEDS: buPROPion 75mg tablet PO SCH ×2 (09:58→20:12)
[2017-09-29] MEDS: ascorbic acid 500mg tablet PO SCH (09:58)
[2017-09-29] MEDS: calcium carbonate 500mg tablet PO SCH ×2 (09:58→20:12)
[2017-09-29] MEDS: ferrous sulfate 300mg/5ml UD oral liquid PO SCH ×2 (09:58→20:12)
[2017-09-29] MEDS: sotalol 80mg tablet PO SCH ×2 (09:59→20:13)
[2017-09-29] MEDS: famotidine/PF 10 mg/ml inj IV SCH ×2 (09:59→20:12)
[2017-09-29] MEDS: normal saline 1000ml 1,000 ML IV SCH (10:44)
[2017-09-29] MEDS: FENTANYL-0.9 % NACL/PF 100 ML IV PRN (10:44)
[2017-09-29] MEDS: atorvastatin 20mg tablet PO SCH (20:12)
[2017-09-29] MEDS: insulin glargine (Lantus) pen - multi-dose SQ SCH (20:32)
[2017-09-30] VITALS (23 sets, daily range): BP systolic 94–155; BP diastolic 41–85
[2017-09-30] MEDS: metoclopramide 5 mg/ml inj IV SCH ×4 (01:32→20:00)
[2017-09-30] MEDS: mineral oil/petrolatum ophthal oint EACHEYE SCH ×4 (01:34→20:47)
[2017-09-30] MEDS: insulin regular, human vial - multi-dose SQ SCH (01:49)
[2017-09-30 02:21] LABS: BASOPHILS % (AUTO) 0 % (0-1); EOSINOPHILS # (AUTO) 0.4 X10'3 (0-0.9); EOSINOPHILS % (AUTO) 1.5 % (0-6); HEMATOCRIT 24.6 % (42.0-52.0); HEMOGLOBIN 8.2 g/dl (14.0-17.9); LYMPHOCYTES # (AUTO) 0.4 X10'3 (1.1-4.8); LYMPHOCYTES % (AUTO) 1.5 % (21-51); MEAN CORPUSCULAR HEMOGLOBIN 32.1 PG (27.0-31.0); MEAN CORPUSCULAR HGB CONC 33.5 % (33.0-36.5); MEAN CORPUSCULAR VOLUME 95.9 FL (78-98); MEAN PLATELET VOLUME 10.2 FL (7.4-10.4); MONOCYTES % (AUTO) 4.2 % (2-12); NEUTROPHILS # (AUTO) 22.9 X10'3 (1.8-7.7); NEUTROPHILS % (AUTO) 92.8 % (42-75); PLATELET COUNT 193 X10'3 (140-440); RED BLOOD COUNT 2.57 X10'6 (4.70-6.10); RED CELL DISTRIBUTION WIDTH 17.1 % (11.5-14.5); WHITE BLOOD COUNT 24.7 X10'3 (4.5-11.0)
[2017-09-30] MEDS: ipratropium/albuterol 3ml nebule NEB SCH ×6 (02:25→22:27)
[2017-09-30 02:36] LABS: ALANINE AMINOTRANSFERASE 30 U/L (12-78); ALBUMIN 1.3 G/DL (3.4-5.0); ALBUMIN/GLOBULIN RATIO 0.4 (1.1-1.5); ALKALINE PHOSPHATASE 52 IU/L (46-116); ANION GAP 10 (8-16); ASPARTATE AMINO TRANSFERASE 26 U/L (10-37); BILIRUBIN,TOTAL 0.4 MG/DL (0.1-1.0); BLOOD UREA NITROGEN 122 MG/DL (7-18); CALCIUM 8.3 MG/DL (8.5-10.1); CHLORIDE 102 MMOL/L (99-107); CREATININE 4.21 MG/DL (0.60-1.10); GLUCOSE 88 MG/DL (70-104); MAGNESIUM 2.4 MG/DL (1.5-2.4); PHOSPHORUS 5.7 MG/DL (2.3-4.5); POTASSIUM 5.4 MMOL/L (3.5-5.1); SODIUM 138 MMOL/L (135-145); TOTAL CARBON DIOXIDE 25.7 MMOL/L (24-32); eGFR 14 ML/MIN
[2017-09-30 03:31] LABS: ABG BASE EXCESS -4.1 mmol/L (-2.0-3.0); ABG HCO3 22.2 mmol/L (22.0-26.0); ABG OXYGEN SATURATION 95.4 % (95-98); ABG PCO2 (T) 47.5 mmHg (35.0-48.0); ABG PH (T) 7.289 (7.350-7.450); ABG PO2 (T) 89.1 mmHg (83-108); ALLEN'S TEST Positive; FCOHb 0.4 % (0.5-1.5); FMetHb 0.3 % (0.3-1.12); FO2Hb 94.7 % (94-100); MINUTE VOLUME 11 L/min; PATIENT TEMPERATURE 37.4; PEEP 5 cm H2O; RESPIRATORY RATE 20 b/min; RESPIRATORY RATE (OBSERVED) 24 b/min; TIDAL VOLUME 402 mL; TOTAL HEMOGLOBIN 8.5 G/dl (14.0-18.0)
[2017-09-30 03:38] LABS: TOTAL CELLS COUNTED 100
[2017-09-30 03:39] LABS: ANISOCYTOSIS 1+; PLATELET ESTIMATE NORMAL
[2017-09-30 03:40] LABS: HYPOCHROMASIA 1+; SCHISTOCYTES FEW; TARGET CELLS 2+
[2017-09-30 03:41] LABS: LARGE PLATELETS FEW; SMUDGE CELLS 1+; TOXIC GRANULATION 1+
[2017-09-30] MEDS: bisacodyl 10mg suppository rectal RC PRN (07:45)
[2017-09-30] MEDS: enoxaparin 60mg/0.6ml syringe SUBCUT SCH (08:00)
[2017-09-30] MEDS: enoxaparin 30mg/0.3ml syringe SUBCUT SCH (08:00)
[2017-09-30] MEDS: famotidine/PF 10 mg/ml inj IV SCH ×2 (09:52→20:47)
[2017-09-30] MEDS: amiodarone 200mg tablet PO SCH ×2 (09:53→20:47)
[2017-09-30] MEDS: sotalol 80mg tablet PO SCH ×2 (09:53→20:47)
[2017-09-30] MEDS: lactobacillus rhamnosus 10,000 MMU CELLS/CAPSULE PO SCH ×2 (09:53→20:47)
[2017-09-30] MEDS: losartan 50mg tablet PO SCH (09:53)
[2017-09-30] MEDS: ferrous sulfate 300mg/5ml UD oral liquid PO SCH ×2 (09:53→20:47)
[2017-09-30] MEDS: apixaban 5mg tablet PO SCH ×2 (09:54→20:47)
[2017-09-30] MEDS: aspirin 81mg tab.chew PO SCH (09:54)
[2017-09-30] MEDS: ascorbic acid 500mg tablet PO SCH (09:54)
[2017-09-30] MEDS: calcium carbonate 500mg tablet PO SCH ×2 (09:54→20:47)
[2017-09-30] MEDS: buPROPion 75mg tablet PO SCH ×2 (09:54→20:47)
[2017-09-30] MEDS: levoFLOXACIN-Levaquin 250mg/D5 50 ML IV SCH (09:55)
[2017-09-30] MEDS: midazolam 100mg in NS 100ml 100 ML IV PRN (12:29)
[2017-09-30] MEDS: FENTANYL-0.9 % NACL/PF 100 ML IV PRN (16:51)
[2017-09-30] MEDS: atorvastatin 20mg tablet PO SCH (20:47)
[2017-09-30] MEDS: insulin glargine (Lantus) pen - multi-dose SQ SCH (21:00)
[2017-10-01] VITALS (19 sets, daily range): BP systolic 0–118; BP diastolic 0–57
[2017-10-01] MEDS: metoclopramide 5 mg/ml inj IV SCH ×3 (02:00→14:00)
[2017-10-01] MEDS: mineral oil/petrolatum ophthal oint EACHEYE SCH ×3 (02:00→14:00)
[2017-10-01 02:28] LABS: BASOPHILS % (AUTO) 0 % (0-1); EOSINOPHILS # (AUTO) 0.5 X10'3 (0-0.9); EOSINOPHILS % (AUTO) 2.1 % (0-6); HEMATOCRIT 24.2 % (42.0-52.0); LYMPHOCYTES # (AUTO) 0.3 X10'3 (1.1-4.8); LYMPHOCYTES % (AUTO) 1.3 % (21-51); MEAN CORPUSCULAR HEMOGLOBIN 31.7 PG (27.0-31.0); MEAN CORPUSCULAR HGB CONC 33.1 % (33.0-36.5); MEAN CORPUSCULAR VOLUME 95.8 FL (78-98); MEAN PLATELET VOLUME 10.1 FL (7.4-10.4); MONOCYTES # (AUTO) 1.1 X10'3 (0-0.9); MONOCYTES % (AUTO) 4.8 % (2-12); NEUTROPHILS # (AUTO) 21.4 X10'3 (1.8-7.7); NEUTROPHILS % (AUTO) 91.8 % (42-75); PLATELET COUNT 194 X10'3 (140-440); RED BLOOD COUNT 2.52 X10'6 (4.70-6.10); RED CELL DISTRIBUTION WIDTH 16.5 % (11.5-14.5); WHITE BLOOD COUNT 23.3 X10'3 (4.5-11.0)
[2017-10-01 02:32] LABS: ALANINE AMINOTRANSFERASE 31 U/L (12-78); ALBUMIN 1.3 G/DL (3.4-5.0); ALBUMIN/GLOBULIN RATIO 0.3 (1.1-1.5); ALKALINE PHOSPHATASE 57 IU/L (46-116); ANION GAP 12 (8-16); ASPARTATE AMINO TRANSFERASE 30 U/L (10-37); BILIRUBIN,TOTAL 0.4 MG/DL (0.1-1.0); CALCIUM 8.5 MG/DL (8.5-10.1); CHLORIDE 101 MMOL/L (99-107); CREATININE 5.32 MG/DL (0.60-1.10); GLUCOSE 99 MG/DL (70-104); MAGNESIUM 2.6 MG/DL (1.5-2.4); PHOSPHORUS 7.2 MG/DL (2.3-4.5); PREALBUMIN 16.7 MG/DL (19-36); SODIUM 137 MMOL/L (135-145); TOTAL CARBON DIOXIDE 24.4 MMOL/L (24-32); TOTAL PROTEIN 5.3 G/DL (6.4-8.2); eGFR 11 ML/MIN
[2017-10-01 02:36] LABS: BLOOD UREA NITROGEN 157 MG/DL (7-18); BUN/CREATININE RATIO 29.5 (5.4-32.0)
[2017-10-01 02:37] LABS: POTASSIUM 6.2 MMOL/L (3.5-5.1)
[2017-10-01] MEDS: ipratropium/albuterol 3ml nebule NEB SCH ×4 (02:40→15:00)
[2017-10-01 03:41] LABS: ABG BASE EXCESS -7.7 mmol/L (-2.0-3.0); ABG HCO3 19.4 mmol/L (22.0-26.0); ABG OXYGEN SATURATION 95.9 % (95-98); ABG PCO2 (T) 47.1 mmHg (35.0-48.0); ABG PH (T) 7.231 (7.350-7.450); ABG PO2 (T) 95.5 mmHg (83-108); ALLEN'S TEST Positive; FCOHb 0.8 % (0.5-1.5); FMetHb 0.3 % (0.3-1.12); FO2Hb 94.8 % (94-100); MINUTE VOLUME 8 L/min; PATIENT TEMPERATURE 36.6; PEEP 5 cm H2O; RESPIRATORY RATE 20 b/min; RESPIRATORY RATE (OBSERVED) 20 b/min; TIDAL VOLUME 425 mL; TOTAL HEMOGLOBIN 8.2 G/dl (14.0-18.0)
[2017-10-01] MEDS: famotidine/PF 10 mg/ml inj IV SCH (07:56)
[2017-10-01] MEDS: methylnaltrexone br 12mg/0.6ml inj***SubQ only SQ SCH (07:56)
[2017-10-01] MEDS: levoFLOXACIN-Levaquin 250mg/D5 50 ML IV SCH (07:56)
[2017-10-01] MEDS: aspirin 81mg tab.chew PO SCH (07:56)
[2017-10-01] MEDS: ferrous sulfate 300mg/5ml UD oral liquid PO SCH (07:56)
[2017-10-01] MEDS: buPROPion 75mg tablet PO SCH (07:56)
[2017-10-01] MEDS: sotalol 80mg tablet PO SCH (07:57)
[2017-10-01] MEDS: amiodarone 200mg tablet PO SCH (07:57)
[2017-10-01] MEDS: lactobacillus rhamnosus 10,000 MMU CELLS/CAPSULE PO SCH (07:57)
[2017-10-01] MEDS: calcium carbonate 500mg tablet PO SCH (07:57)
[2017-10-01] MEDS: ascorbic acid 500mg tablet PO SCH (07:57)
[2017-10-01] MEDS: losartan 50mg tablet PO SCH (07:57)
[2017-10-01] MEDS: apixaban 5mg tablet PO SCH (07:57)
[2017-10-01] MEDS ORDERED: heparin 1,000 units/ml 10ml inj IV ONE (08:00)
[2017-10-01] MEDS ORDERED: epoetin 20,000 units/ml inj IV ONE (08:00)
[2017-10-01] MEDS ORDERED: normal saline 1000ml 250 ML IV PRN (08:00)
[2017-10-01] MEDS ORDERED: heparin 1,000unit/ml 10ml vial 10 ML IV ONE (08:00)
[2017-10-01] MEDS ORDERED: heparin 1,000 units/ml 10ml inj HE ONE ×2 (08:00)
[2017-10-01] MEDS: normal saline 1000ml 1,000 ML IV SCH (10:20)
[2017-10-01] MEDS: FENTANYL-0.9 % NACL/PF 100 ML IV PRN (13:29)
[2017-10-01] MEDS ORDERED: LORazepam 2 mg/ml vial IV PRN (16:55)
[2017-10-01] MEDS ORDERED: morphine 2 MG/ML inj. syringe IV PRN (16:55)
[2017-10-02 11:12] LABS: HBSAG SCREEN Negative (Negative)
== END 2017-10-01 20:38 | disposition expired | DRG 207 ==
LOC: ER 07:23 → ED HOLD 09:25 → EDBEDREQ 13:44 → SUR 3N 14:06 → CICU 2S 09-19 01:14
PROVIDERS: ADMIT Family Medicine
PROC: 4A133B1 Monitoring of Arterial Pressure, Peripheral, Percutaneous Approach (ICD-10-PCS; 2017-09-17)
PROC: 4A133J1 Monitoring of Arterial Pulse, Peripheral, Percutaneous Approach (ICD-10-PCS; 2017-09-17)
PROC: 5A1935Z Respiratory Ventilation, Less than 24 Consecutive Hours (ICD-10-PCS; principal; 2017-09-19)
PROC: 5A1955Z Respiratory Ventilation, Greater than 96 Consecutive Hours (ICD-10-PCS; 2017-09-19)
PROC: 0BH17EZ Insertion of Endotracheal Airway into Trachea, Via Natural or Artificial Opening (ICD-10-PCS; 2017-09-19)
PROC: 05H533Z Insertion of Infusion Device into Right Subclavian Vein, Percutaneous Approach (ICD-10-PCS; 2017-09-19)
PROC: 5A1D90Z Performance of Urinary Filtration, Continuous, Greater than 18 hours Per Day (ICD-10-PCS; 2017-09-24)
PROC: 02HV33Z Insertion of Infusion Device into Superior Vena Cava, Percutaneous Approach (ICD-10-PCS; 2017-09-24)
PROC: 5A1D90Z Performance of Urinary Filtration, Continuous, Greater than 18 hours Per Day (ICD-10-PCS; 2017-09-25)
PROC: 5A1D70Z Performance of Urinary Filtration, Intermittent, Less than 6 Hours Per Day (ICD-10-PCS; 2017-09-28)
PROC: 5A1D70Z Performance of Urinary Filtration, Intermittent, Less than 6 Hours Per Day (ICD-10-PCS; 2017-10-01)
DX: J96.21 Acute and chronic respiratory failure with hypoxia (principal); N17.0 Acute kidney failure with tubular necrosis; J69.0 Pneumonitis due to inhalation of food and vomit; J15.1 Pneumonia due to Pseudomonas; R65.21 Severe sepsis with septic shock; A41.9 Sepsis, unspecified organism; J44.1 Chronic obstructive pulmonary disease with (acute) exacerbation; E87.1 Hypo-osmolality and hyponatremia; N18.3 Chronic kidney disease, stage 3 (moderate); I48.2 Chronic atrial fibrillation; D64.9 Anemia, unspecified; I73.9 Peripheral vascular disease, unspecified; M19.90 Unspecified osteoarthritis, unspecified site; R26.2 Difficulty in walking, not elsewhere classified; I25.10 Atherosclerotic heart disease of native coronary artery without angina pectoris; F17.210 Nicotine dependence, cigarettes, uncomplicated; Z51.5 Encounter for palliative care; Z88.8 Allergy status to other drugs, medicaments and biological substances; Z85.01 Personal history of malignant neoplasm of esophagus; Z92.21 Personal history of antineoplastic chemotherapy; Z95.1 Presence of aortocoronary bypass graft; Z92.3 Personal history of irradiation; Z82.49 Family history of ischemic heart disease and other diseases of the circulatory system; Z82.5 Family history of asthma and other chronic lower respiratory diseases
CPT/HCPCS: 36415; 36600; 71045; 80048; 80053; 80069; 81001; 82330; 82570; 82803; 82810; 82948; 83036; 83605; 83735; 83880; 84100; 84134; 84145; 84300; 84484; 85018; 85025; 85610; 85730; 87040; 87070; 87077; 87186; 87207; 87340; 87502; 87503; 93005; 93306; 94002; 94003; 94640; 94760; 96374; 99291; A6212; A6213; A6222; A6223; A6251; A6449; A7015; C1751; C1758; G0257; J0282; J0456; J0692; J0696; J0885; J1644; J1650; J1815; J1940; J1956; J2250; J2543; J2920; J2930; J3370; J3490; J7030; P9047